=== PATIENT | female | born 1945 | race Caucasian/White ===

== ENCOUNTER 2022-01-20 05:29 | Inpatient (IN) | payer MEDICARE, SELFPAY ==
[2022-01-20] VITALS (19 sets, daily range): BP systolic 117–160; BP diastolic 44–75; PULSE 68–111; RESP 16–34; TEMP 36.5–38.1; O2SAT 91–100; BMI 27.8; BMI 29.8
--- NOTE | 2022-01-20 06:11 | EKG12_ITS ---
Test Reason : PRE OP Blood Pressure : / mmHG Vent. Rate : 073 BPM Atrial Rate : 073 BPM P-R Int : 172 ms QRS Dur : 074 ms QT Int : 418 ms P-R-T Axes : 031 017 021 degrees QTc Int : 460 ms Normal sinus rhythm Normal ECG When compared with ECG of 17-AUG-2008 22:08, No significant change was found Confirmed by JEB JOHNSON, VENANCIO ([id number]), photograph editor NEHEMIAH VALENZUELA ([id number]) on 01/24/2022 2:23:16 PM Referred By: Jay Hemphlil Confirmed By:VENANCIO RUSS MD
--- NOTE | 2022-01-20 06:18 | RAD_ITS ---
INDICATION: pre operative EXAMINATION/TECHNIQUE: X-RAY - XR Chest 1 View COMPARISON: December 29, 2015. FINDINGS: LINES/DEVICES: None. LUNGS: Linear atelectasis or scarring in the bilateral lung bases. No consolidation, florid edema or effusion. No pneumothorax. MEDIASTINUM AND CARDIOVASCULAR STRUCTURES: Cardiac silhouette not enlarged. BONES AND SOFT TISSUES: Thoracolumbar fixation hardware noted.. RAD/Chest 1 View (Portable) IMPRESSION: Linear atelectasis or scarring in the lung bases. No radiographic evidence of consolidative pneumonia or florid edema. Electronically Signed: Jerzy Donnelly MD at 7:19 EDT ,
[2022-01-20 06:30] LABS: Absolute Lymphocyte Count 3.06 X10^3/uL (0.83-4.51); Absolute Neutrophil Count 3.7 X10^3/uL (2.0-7.7); Basophil# 0.03 X10^3/uL; Basophil% 0.4 % (0-1); Eosinophil# 0.15 X10^3/uL; Hematocrit 38.9 % (37-47); Hemoglobin 11.6 g/dL (12.0-15.0); Lymphocyte # 3.06 X10^3/ul (0.83-4.51); Lymphocyte % 40.8 % (19-41); Mean Corp Hgb Conc 29.8 g/dL (32-36); Mean Corpuscular Hgb 24.9 pg (27.0-32.0); Mean Corpuscular Volume 83.7 fL (81-99); Mean Platelet Vol. 9.8 fl (6.2-12.0); Monocyte% 6.7 % (0-10); NRBC Flagged by Analyzer 0 % (0-5); Neutrophil # 3.73 X10^3/uL (2.7-7.7); Neutrophil % 49.7 % (47-70); Platelet Count 209 K/mm3 (150-450); RBC Distribution Width CV 18.6 % (11.6-14.6); RBC Distribution Width SD 56.4 fl (35.1-43.9); Red Blood Count 4.65 M/mm3 (4.2-5.4); White Blood Count 7.5 K/mm3 (4.4-11.0)
[2022-01-20] MEDS: Lactated Ringers 1,000 ML 15 ML IV (06:35)
[2022-01-20 07:07] LABS: Anion Gap 7 (5-15); BUN 15 mg/dL (7-18); BUN/Creat Ratio 22.6 RATIO (10-20); Chloride 97 mmol/L (98-107); Creatinine, Serum 0.66 mg/dL (0.55-1.02); EST Glomerular Filtration Rate 92 mL/min (>60); Est Glom Filt Rate - Afr Amer 111 mL/min (>60); Estimated Creatinine Clearance 40.21 ml/min; Glucose 89 mg/dL (74-106); Potassium 3.9 mmol/L (3.5-5.1); Sodium Level 135 mmol/L (136-145); Thyroid Stim Hormone (TSH) 2.52 uIU/mL (0.358-3.74)
--- NOTE | 2022-01-20 07:30 | FEM_PTH ---
PATIENT: ISI WILKINS LOC: [facility]3 U#:[id number] AGE/SX: 76/F [place] [facility] [place]20/[address]: Dr. Jay Hemphill DO : 1945 BED: 1 DIS: 01/26/2022 SPEC #: [id number] RECD: 01/20/22 11:05 STATUS: BRITTNY JALEEL #: [id number] JOSE: 01/20/22 07:[address]: Jay Hemphill DEPT: SURGICAL PATHOLOGY RECD BY: Dorothy Carlin ENTERED: 01/20/22 11:41 SP TYPE: FEM HEAD OTHR DR: Dr. Kan Martin MD Tissues: Femoral region, NOS Procedures: Decalcification bone/plaque Surgery Specimen Level V HEADER OPERATION: Hip removal of hardware, conversion to hip hemiarthroplasty PRE-OP DIAGNOSIS: Nondisplaced fracture of base of neck of left femur, initial encounter for closed fracture TISSUE SUBMITTED: Left femoral head MICROSCOPIC DIAGNOSIS Bone and tissue of left hip, fracture: Consistent with organizing fracture callus. AM:ciro 01/26/2022 MICROSCOPIC DESCRIPTION Slides are reviewed. GROSS DESCRIPTION Received is one container labeled with the patient's name and designated left femoral head. The specimen consists of a crews femoral head measuring 4.5 x 4.5 x 4 cm. The articular surface is grossly unremarkable. The non-articular surface is hemorrhagic and irregular and consistent with fracture. Also present in the specimen container are multiple irregular fragments of bone measuring in aggregate 5.5 x 4 x 1.2 cm. [employer] Front Ventilator sections are submitted in two cassettes after decalcification. / AM:ciro 01/20/2022 TC:5 CPT: 05804, 36672
[2022-01-20] MEDS: Cefazolin 2 GM in 0.9% Normal Saline 100 ML IV (07:33)
[2022-01-20] MEDS: Ropivacaine 0.5% 30 ML Vial (08:11)
[2022-01-20] MEDS: Vancomycin IV 1,000 MG/20 ML Vial 1000 MG OPERA.SITE (09:10)
--- NOTE | 2022-01-20 10:30 | RAD_ITS ---
STUDY: X-RAY - PELVIS AND LEFT HIP REASON FOR EXAM: Female, 76 years old. Post Op -- AP both hips on single bessy/lateral of op hip PACU TECHNIQUE: 2 views of the pelvis and hip. COMPARISON: None. FINDINGS: There is a non-specific bowel gas pattern. Normal visualized soft tissue structures. Normal bilateral iliac wings, sacroiliac joints and visualized sacrum. Normal bilateral superior and inferior pubic rami. Normal pubic symphysis. Normal bilateral ischial tuberosities. Status post left hip arthroplasty. Normal acetabulum. Normal hip joint. RAD/Hip Min 2 Views (Portable) IMPRESSION: Normal x-ray examination of the pelvis and hip after left hip arthroplasty. Electronically Signed: Rufus Seaman MD at 11:24 EDT ,
--- NOTE | 2022-01-20 10:38 | OP.PCM_ITS ---
Report of Operation Date of Procedure: 01/20/22 Description of Surgical Findings:: Preoperative diagnosis: 1. Left displaced femoral neck fracture with failed orthopedic stabilization 2. Retained left femur buried hardware Postoperative diagnosis: 1. Left displaced femoral neck fracture with failed orthopedic stabilization 2. Retained left femur buried hardware Procedure: 1. Removal of retained orthopedic hardware left femur 2. Conversion of failed internal fixation left femoral neck to left hip john arthroplasty Surgeon: Jay Hemphill DO Welding Inspector: Mai Haywood PA-C Anesthesia: General endotracheal Anesthesiologist: Dr. Freed Complications: None apparent Drains: None Estimated blood loss: 350 cc Urinary output: None recorded IV fluids: 600 cc crystalloid crystalloid Specimens: Femoral head resection Surgical implants: Sola Accolade C 127 degree neck angle hip stem size #3, Unitrax neck adjustment sleeve 0 mm, Unitrax endoprosthesis head component outer diameter 46 mm, [employer] beaded cerclage cable x1 Indications: This is an 76-year-old female who sustained a fall approximately 3 weeks ago and sustained a left nondisplaced femoral neck fracture. I performed a percutaneous screw fixation of the left femoral neck on 12/27/2021 at [facility]. Patient mobilized with therapy reasonably well. At her 2- week follow-up, x-rays revealed loss of fixation with displacement of the femoral neck. I reviewed the x-rays with the patient. I explained that this is unlikely to heal and I would recommend conversion to a left hip hemiarthroplasty versus total hip arthroplasty. I explained that she had minimal arthritic wear on x-rays and we would likely perform a hemiarthroplasty barring any chondral injury from screw cut out. I reviewed the procedure with the patient, its risk, benefits, alternatives. Risks included but were not limited to bleeding, in fection, loss of life or limb, risk of anesthesia, neurovascular injury, persistent pain, instability, need for additional surgery, failure of orthopedic hardware, loosening, osteolysis, need for assistive devices long-term. Patient expressed understanding wish to proceed with surgery. Description of procedure: Prior to the procedure, patient was brought to the preoperative holding area where patient was identified by name, medical record number and date of . I confirmed the side, site, operation to be performed with the patient. Informed consent was confirmed, All questions were answered to patient satisfaction. The operative extremity was marked. She was also seen by anesthesia staff and anesthesia consent obtained.At time of the operative procedure, pt was brought to the operative suite. General anesthesia was induced on the hospital bed and endotracheal tube placed. After adequate anesthesia, patient was transferred to a standard operating table. She was then positioned in the lateral decubitus position with the left side up and held in position by the Toby med hip positioner system. All bony prominences were well-padded. A axillary roll was placed under the patient's right axilla. Peroneal nerve was free with a blanket on the nonoperative extremity. Leg lengths were reproduced from patient's position when she was supine. The left lower extremity was then prepped and draped in normal, sterile orthopedic fashion. We performed a timeout with all parties in attendance in agreement with the side, site, and operation to be performed. No concerns were voiced and would like to proceed. I first marked the prior incision incorporating this into a standard posterior lateral approach to the hip. An approximately 18 cm incision was made. Skin was sharply incised with a 10 blade scalpel carried deep through subcutaneous layers to the level of the IT band. Gelpi retractors were then placed. Small subcutaneous hematoma with clotted blood was noted at the level of the prior incision. A Fung was used to expose the IT band. Bovie cautery was then used for hemostasis and then to open the IT band. This was opened in line with the incision. I then identified the 3 screw heads of the cannulated screws. These were removed without difficulty. I then turned my attention to the hip. The trochanteric bursa was then debrided. This identified the short external rotators after internal rotation of the hip. The fracture site was easily identified at this point. Short external rotators were taken down and tagged for later repair. Hip capsule was also tagged for repair with a stay suture. We then freshened the neck cut with a sagittal saw. Anterior and posterior acetabular retractors were placed to gain access to the femoral head. A corksc rew was used to remove the head. Any remaining debris was debrided from the acetabulum. We then placed the femoral head on the back table for measurement. We did use trial heads and selected a final size 46 with good suction fit. Prior to preparing the femur, I elected to place a cerclage cable at the level of the calcar in hopes to diminish her risk of intraoperative fracture. Box chisel was then utilized to gain access to the femoral canal. Canal finder was placed. Sequential broaches were used in press-fit manner. A final size 3 achieved excellent vertical and rotational stability. We then trialed with a standard and subsequently high offset stem. I offset did achieve excellent stability and reproduction of abductor tension. I then prepared the femur for cementing. We trialed a centralizer to determine appropriate size. Simplex cement was then mixed on the back table. I placed a cement restrictor to an appropriate depth allowing for a 5 mm distal cement mantle. Wire brush was used to remove blood from the femoral canal. I then thoroughly irrigated the femoral canal. Canal was suctioned dry. I then placed dry vaginal packing to pack the femoral canal. After 3 minutes, the cement was pressurized in the femoral canal. Size #3 stem was then placed by hand to an appropriate depth recreating appropriate anteversion of the femoral neck. This was held in place while cement cured. Excess cement was removed. After the cemented hardened, we copiously irrigated the wound with normal saline solution and dilute sterile Betadine solution. I performed a final trialing with a +0 mm head trial which appropriately reproduce her leg lengths and was stable through an arc of motion. Final dislocation was performed. The trunnion was irrigated and dried. Final head was then impacted over the [place] taper neck. Final reduction was performed. I then placed 0.5 g of vancomycin within the hip capsule. A posterior capsular repair was performed with #2 Ethibond suture via bone tunnels. IT band was closed watertight with #1 strata fix suture. An additional 0.5 g of vancomycin was placed superficial to the IT band. Deeper fascial layers were closed with 0 Vicryl suture in interrupted fashion. Subcutaneous layers were reapproximated with 2-0 Vicryl suture and skin reapproximated finally with interrupted horizontal mattress 2-0 nylon suture. A Prevena incisional wound VAC dressing was placed with good suction seal. Patient tolerated procedure well without complication. She was positioned back in the supine position on her hospital bed and subsequently extubated safely. She was transferred to PACU in stable condition. Blankets were placed between the patient's legs. Post Operative Plan: Patient will be admitted overnight. We will plan to transfer the patient back to correction facility after medically stable. Weightbearing: Weightbearing as tolerated left lower extremity, posterior hip precautions. Blankets between the legs for the first 24 hours Antibiotics: Ancef 2 g every 8 hours x 3 doses, doxycycline 100 mg twice daily x7 days DVT Prophylaxis: Lovenox 40 mg subcutaneously daily starting postoperative day #1 Ocampo: None Dressing: Maintain Prevena wound VAC x10 days, then dry sterile dressing changes X-Rays: PACU x-rays were reviewed demonstrated well-positioned left hip hemiarthroplasty implant. Follow-up 2-week x-rays in the office. Follow-up: 2 weeks in my office for suture removal
[2022-01-20] MEDS: oxyCODONE 5 MG Tablet 10 MG PO (12:57)
--- NOTE | 2022-01-20 13:01 | NURSING ---
pt is cold, warm blankets given. Pt also given jello, ice water, and flavored ice. Pt is eating jello at this time.
--- NOTE | 2022-01-20 14:17 | WOUNDNOTE ---
wound photo: mid upper back
--- NOTE | 2022-01-20 15:08 | PCM.PN.HOSP ---
Subjective Subjective Mrs. Villar is a 76-year-old female who was seen in follow-up by Dr. Hemphill status post a left femoral neck percutaneous screw fixation that was done on 12/27/2021. Upon evaluation follow-up she was approximately 2 weeks out of surgery and complaining of 8 out of 10 pain and presented in a wheelchair. He had indicated that she had tried bearing weight however struggled. X-rays revealed considerable loss of fixation at the site and further surgical intervention was recommended with removal of hardware and conversion to a left hip hemiarthroplasty versus a left total hip arthroplasty. The patient was admitted the hospital on 01/20/2022 for this procedure at which time her fixating screw was removed in conversion to a left hip hemiarthroplasty was performed. The patient has been admitted overnight and we have been consulted for postoperative follow-up. Patient was seen on the medical floor postoperatively. Currently complaining of 3 out of 10 pain in the left hip. Physical occupational therapy at the bedside. Objective Data Objective Data Vital Signs: Vital Signs Temp Pulse Resp BP Pulse Ox O2 Del Method O2 Flow Rate 99.4 F H 90 18 134/70 H 94 Room Air 1 01/20/22 14:35 01/20/22 14:35 01/20/22 14:35 01/20/22 14:35 01/20/22 14:35 01/20/22 14:35 01/20/22 13:50 Oxygen Flow Rate (L/min) 1 Oxygen Delivery Method Room Air Weight: 76.402 kg Body Mass Index (BMI) 29.8 Intake & Output: Intake and Output for Last 24 Hours 01/18/22 01/19/22 01/20/22 23:59 23:59 23:59 Intake Total 110 / 110 Balance 110 / 110 Lab / Micro Data Result Diagrams: 01/20/22 06:15 01/20/22 06:15 Labs: Laboratory Results - last 24 hr 01/20/22 06:15: WBC 7.5, RBC 4.65, Hgb 11.6 L, Hct 38.9, MCV 83.7, MCH 24.9 L, MCHC 29.8 L, RDW Std Deviation 56.4 H, RDW Coeff of Colin 18.6 H, Plt Count 209, MPV 9.8, Immature Gran % (Auto) 0.400, Neut % (Auto) 49.7, Lymph % (Auto) 40.8, Converse % (Auto) 6.7, Eos % (Auto) 2.0, Baso % (Auto) 0.4, Absolute Neuts (auto) 3.7, Absolute Lymphs (auto) 3.06, Nucleated RBC % 0 01/20/22 06:15: Sodium 135 L, Potassium 3.9, Chloride 97 L, Carbon Dioxide 31.0, Anion Gap 7, BUN 15, Creatinine 0.66, Estim Creat Clear Calc 40.21, Est GFR (MDRD) Af Amer 111, Est GFR (MDRD) Non-Af 92, BUN/Creatinine Ratio 22.6 H, Glucose 89, Calcium 9.0, TSH 2.52 01/20/22 06:15: Blood Type O POSITIVE, Antibody Screen NEGATIVE Radiography Diagnostic Testing: Radiology Impression Chest X-Ray 01/20/22 06:18 IMPRESSION: Linear atelectasis or scarring in the lung bases. No radiographic evidence of consolidative pneumonia or florid edema. Electronically Signed: Jerzy Donnelly MD at 7:19 EDT , Hip X-Ray 01/20/22 10:30 IMPRESSION: Normal x-ray examination of the pelvis and hip after left hip arthroplasty. Electronically Signed: Rufus Seaman MD at 11:24 EDT , Physical Exam Const alert, oriented x3, no apparent distress and well nourished Constitutional Narrative: Overweight, elderly white female sitting up in bed, therapy at bedside, patient appears comfortable nontoxic HEENT head/scalp atraumatic and moist oral mucous membranes HEENT Narrative: Titian is poor, Mallampati is 2, no thrush Head and Scalp: normocephalic Resp normal respiratory effort, no retractions, no use of accessory muscles and clear to auscultation bilaterally Resp Narrative: Diminished but clear Auscultation: Negative for crackles, rales, rhonchi or wheezes Cardio regular rate, regular rhythm, S1 normal heart sound, S2 normal heart sound, no murmurs, no rub, no gallops and no clicks GI normal to inspection, nondistended, normoactive bowel sounds, soft to palpation and non-tender Extremity no clubbing, cyanosis or edema Extremity Narrative: Left lower extremity with wound VAC and polar ice in place Neuro oriented x3 and no focal motor deficits Neuro Narrative: Decreased movement left lower extremity secondary to pain Speech: speech normal Psych affect normal Psych Narrative: Appropriately interactive, pleasant Assessment & Plan Assessment/Plan (1) Closed left hip fracture: (2) History of hemiarthroplasty of left hip: (3) Hyponatremia: PLAN: Plan Closed left hip fracture status post fixator screw placement 12/27/2021 -Screw with loosening -Postop day 0 left hemiarthroplasty -Weightbearing as tolerated -PT/OT consultation -Posterior hip precautions -Lovenox subcu 40 mg daily for DVT prophylaxis -Wound VAC x10 days and sterile dressing -Follow-up x-rays and outpatient visit with Dr. Hemphill in 2 weeks -Plan is for probable discharge tomorrow back to skilled facility if patient remains stable Hyponatremia -Mild at 135 -Appears that this has been a problem previously -Repeat lab in a.m. for stability -No further work-up needed at this time Hyperlipidemia -Patient does not appear to be on any statin at baseline -We will leave to outpatient follow-up Hypothyroidism -Continue home levothyroxine Chronic pain -Continue home methadone -Continue home as needed oxycodone for breakthrough Chronic steroid use -Patient is on prednisone 10 mg daily for pain -Would encourage outpatient follow-up and wean as this increases her risk for fracture Hypertension -Continue home metoprolol -Monitor blood pressures Constipation -Likely related to chronic narcotic use -Continue home stool softeners Depression/anxiety/insomnia -Continue home Lexapro -continue home trazodone -Continue home Seroquel -Continue home BuSpar GERD -Continue home PPI History of breast cancer -In remission -No current issues DVT prophylaxis -Lovenox subcu daily -SCDs while hospitalized CODE STATUS -DNR CCA no intubation Charges/Coding Visit Charges Inpatient E&M: 22331 Subs Hosp L2
[2022-01-20] MEDS: Juven (unflavored) Packet 1 PACKET PO (16:33)
[2022-01-20] MEDS: Acetaminophen 500 MG Tablet 1000 MG PO ×2 (17:25→21:53)
--- NOTE | 2022-01-20 17:32 | NURSING ---
This RN attempted to get an accurate med list by calling both sons listed. Both Son's did not answer but this RN left a message. No call back thus far. This RN then called Dr. Gauthier office and spoke to one of his Nurses whom then stated that Ms. Villar had not been a pt of Dr. Gauthier since 2017. Demographic sheet shows that primary care physician is Dr. Martin. This RN in to ask pt and pt tearful b/c she can not remember the name of her Doctor. I forget her name. Pt does state her doctor is a women.
[2022-01-20] MEDS: HYDROmorphone 1 MG/ML Syringe IV (17:56)
[2022-01-20] MEDS: 0.9% Saline Lock 10 ML Syringe IV ×2 (17:56→21:49)
[2022-01-20] MEDS: busPIRone 5 MG Tablet PO (18:20)
[2022-01-20] MEDS: Ketorolac 15 MG/ML Vial IV (21:51)
[2022-01-20] MEDS: Senna/Docusate Sodium 1 Tablet PO (21:53)
[2022-01-20] MEDS: guaiFENesin 600 MG Tablet PO (21:53)
[2022-01-20] MEDS: traZODone 50 MG Tablet PO (21:53)
[2022-01-20] MEDS: Doxycycline 100 MG CAPSULE PO (21:53)
[2022-01-20] MEDS: QUEtiapine 25 MG Tablet PO (21:53)
[2022-01-20] MEDS: MELATONIN 3 MG TABLET PO (21:53)
[2022-01-20] MEDS: Methadone 10 MG Tablet PO (21:55)
[2022-01-21] VITALS (11 sets, daily range): BP systolic 107–148; BP diastolic 47–70; PULSE 82–110; RESP 16–18; TEMP 36.8–37.2; O2SAT 91–98
[2022-01-21] MEDS: Acetaminophen 500 MG Tablet 1000 MG PO ×3 (05:21→21:32)
[2022-01-21] MEDS: Levothyroxine 150 MCG Tablet PO (05:21)
[2022-01-21] MEDS: 0.9% Saline Lock 10 ML Syringe IV (05:22)
[2022-01-21] MEDS: Ketorolac 15 MG/ML Vial IV (05:23)
[2022-01-21 06:40] LABS: Hemoglobin 8.2 g/dL (12.0-15.0); Mean Corp Hgb Conc 31.5 g/dL (32-36); Mean Corpuscular Hgb 25.5 pg (27.0-32.0); Mean Platelet Vol. 10.1 fl (6.2-12.0); Platelet Count 169 K/mm3 (150-450); RBC Distribution Width CV 18.4 % (11.6-14.6); RBC Distribution Width SD 54.5 fl (35.1-43.9); Red Blood Count 3.21 M/mm3 (4.2-5.4); White Blood Count 5.5 K/mm3 (4.4-11.0)
[2022-01-21 07:06] LABS: Anion Gap 8 (5-15); BUN 26 mg/dL (7-18); BUN/Creat Ratio 30.6 RATIO (10-20); Calcium,Total 8.3 mg/dL (8.5-10.1); Chloride 96 mmol/L (98-107); Creatinine, Serum 0.85 mg/dL (0.55-1.02); EST Glomerular Filtration Rate 69 mL/min (>60); Est Glom Filt Rate - Afr Amer 84 mL/min (>60); Estimated Creatinine Clearance 47.31 ml/min; Glucose 89 mg/dL (74-106); Potassium 4.4 mmol/L (3.5-5.1); Sodium Level 131 mmol/L (136-145)
--- NOTE | 2022-01-21 07:22 | PN.ORTHO_ITS ---
Subjective Subjective Patient seen and examined. Resting comfortably this morning. She awoke and answer questions appropriately. States her left hip feels alright . Denies fevers, chills, nausea vomiting, chest pain or shortness of breath. Objective Data Objective Data Vital Signs: Vital Signs Temp Pulse Resp BP Pulse Ox O2 Del Method O2 Flow Rate 98.5 F 82 18 148/60 H 98 Room Air 1 01/21/22 05:16 01/21/22 05:16 01/21/22 05:16 01/21/22 05:16 01/21/22 05:16 01/21/22 05:16 01/20/22 13:50 Oxygen Flow Rate (L/min) 1 Oxygen Delivery Method Room Air Weight: 168 lb 7.001 oz Body Mass Index (BMI) 29.8 Intake & Output: Intake and Output for Last 24 Hours 01/19/22 01/20/22 01/21/22 23:59 23:59 23:59 Intake Total 841 / 841 100 / 100 Balance 841 / 841 100 / 100 Lab / Micro Data Result Diagrams: 01/21/22 06:25 01/21/22 06:25 Labs: Laboratory Results - last 24 hr 01/20/22 06:15: Blood Type O POSITIVE, Antibody Screen NEGATIVE 01/21/22 06:25: WBC 5.5, RBC 3.21 L, Hgb 8.2 L, Hct 26.0 L, MCV 81.0, MCH 25.5 L , MCHC 31.5 L D, RDW Std Deviation 54.5 H, RDW Coeff of Colin 18.4 H, Plt Count 169, MPV 10.1 01/21/22 06:25: Sodium 131 L, Potassium 4.4, Chloride 96 L, Carbon Dioxide 27.0, Anion Gap 8, BUN 26 H, Creatinine 0.85, Estim Creat Clear Calc 47.31, Est GFR (MDRD) Af Amer 84, Est GFR (MDRD) Non-Af 69, BUN/Creatinine Ratio 30.6 H, Glucose 89, Calcium 8.3 L Radiography Diagnostic Testing: Radiology Impression Chest X-Ray 01/20/22 06:18 IMPRESSION: Linear atelectasis or scarring in the lung bases. No radiographic evidence of consolidative pneumonia or florid edema. Electronically Signed: Jerzy Donnelly MD at 7:19 EDT , Hip X-Ray 01/20/22 10:30 IMPRESSION: Normal x-ray examination of the pelvis and hip after left hip arthroplasty. Electronically Signed: Rufus Seaman MD at 11:24 EDT , Physical Exam Narrative General - A&Ox3, NAD. VSS/AF Left lower extremity -incisional wound VAC clean dry and intact with good suction seal. No output noted in canister. SILT Sural, Saphenous, SPN, DPN, Tibial N. distributions. DP, PT 2+. BCR. DF, PF, EHL 5/5. No calf TTP. Assessment & Plan Assessment/Plan (1) Closed left hip fracture: PLAN: POD#1 s/p conversion left hip screw fixation to cemented hip h emiarthroplasty - Pain control-patient appears comfortable this morning. - Medicine following for medical management - Hyponatremia again noted today slightly worse, defer to hospitalist for treatment of electrolyte abnormality. Appreciate input. - PT/OT -posterior hip precautions left, weight-bear as tolerated left lower extremity - DVT PPX -Lovenox 40 mg subcutaneously daily starting this morning. Expected drop in hemoglobin with acute blood loss anemia noted from 11.6 preoperatively to 8.2 this morning. Likely some delusional component as well. No evidence of active bleeding on exam today. - Case management - D/C planning. Plan for discharge back to SNF when medically stable.
[2022-01-21] MEDS: Juven (unflavored) Packet 1 PACKET PO ×2 (09:57→17:26)
[2022-01-21] MEDS: Escitalopram Oxalate 20 MG Tablet PO (09:58)
[2022-01-21] MEDS: Methadone 10 MG Tablet PO ×2 (09:58→21:30)
[2022-01-21] MEDS: guaiFENesin 600 MG Tablet PO ×2 (09:58→21:30)
[2022-01-21] MEDS: Pantoprazole Sodium 40 MG Tablet PO (09:58)
[2022-01-21] MEDS: busPIRone 5 MG Tablet PO ×2 (09:58→21:31)
[2022-01-21] MEDS: Metoprolol(XL)Succ 50 MG Tablet PO (09:58)
[2022-01-21] MEDS: Senna/Docusate Sodium 1 Tablet PO ×2 (09:58→21:30)
[2022-01-21] MEDS: Enoxaparin 40 MG/0.4 ML Syringe SC (09:58)
[2022-01-21] MEDS: Doxycycline 100 MG CAPSULE PO ×2 (09:58→21:30)
[2022-01-21] MEDS: Multivitamins,Ther W-Minerals Tablet 1 TABLET PO (09:58)
[2022-01-21] MEDS: QUEtiapine 25 MG Tablet PO ×2 (09:58→21:31)
[2022-01-21 10:23] LABS: Hemoglobin 8.6 g/dL (12.0-15.0)
[2022-01-21] MEDS: oxyCODONE 5 MG Tablet 10 MG PO ×2 (11:14→21:31)
--- NOTE | 2022-01-21 11:28 | CASEMGMT ---
Discharge Front Line Leader This song writer sent referral to Tracy Fournier. Will follow up. Kal ALFARO Learning Development Specialist
--- NOTE | 2022-01-21 11:40 | PN.HOSP_ITS ---
Subjective Subjective No issues overnight. Patient states she is having some pain but overall feels as expected. Objective Data Objective Data Vital Signs: Vital Signs Temp Pulse Resp BP Pulse Ox O2 Del Method O2 Flow Rate 98.2 F 92 18 107/47 L 96 Room Air 1 01/21/22 09:35 01/21/22 09:58 01/21/22 09:35 01/21/22 09:35 01/21/22 09:35 01/21/22 09:35 01/20/22 13:50 Oxygen Flow Rate (L/min) 1 Oxygen Delivery Method Room Air Weight: 76.402 kg Body Mass Index (BMI) 29.8 Intake & Output: Intake and Output for Last 24 Hours 01/19/22 01/20/22 01/21/22 23:59 23:59 23:59 Intake Total 841 / 841 100 / 100 Balance 841 / 841 100 / 100 Lab / Micro Data Result Diagrams: 01/21/22 10:14 01/21/22 06:25 Labs: Laboratory Results - last 24 hr 01/21/22 06:25: WBC 5.5, RBC 3.21 L, Hgb 8.2 L, Hct 26.0 L, MCV 81.0, MCH 25.5 L , MCHC 31.5 L D, RDW Std Deviation 54.5 H, RDW Coeff of Colin 18.4 H, Plt Count 169, MPV 10.1 01/21/22 06:25: Sodium 131 L, Potassium 4.4, Chloride 96 L, Carbon Dioxide 27.0, Anion Gap 8, BUN 26 H, Creatinine 0.85, Estim Creat Clear Calc 47.31, Est GFR (MDRD) Af Amer 84, Est GFR (MDRD) Non-Af 69, BUN/Creatinine Ratio 30.6 H, Glucose 89, Calcium 8.3 L 01/21/22 10:14: Hgb 8.6 L Physical Exam Const alert, oriented x3, no apparent distress and well nourished Constitutional Narrative: Overweight, elderly white female sitting up in bed, lying in bed rolled slightly to her right side, appears comfortable nontoxic, wound nurse at bedside HEENT head/scalp atraumatic and moist oral mucous membranes HEENT Narrative: Dentition is poor, Mallampati is 2 Head and Scalp: normocephalic Resp normal respiratory effort, no retractions, no use of accessory muscles and clear to auscultation bilaterally Resp Narrative: Diminished but clear Auscultation: Negative for crackles, rales, rhonchi or wheezes Cardio regular rate, regular rhythm, S1 normal heart sound, S2 normal heart sound, no murmurs, no rub, no gallops and no clicks GI normal to inspection, nondistended, normoactive bowel sounds, soft to palpation and non-tender Extremity no clubbing, cyanosis or edema Extremity Narrative: Left lower extremity with wound VAC and polar ice in place Neuro oriented x3 and no focal motor deficits Neuro Narrative: Decreased movement left lower extremity secondary to pain Speech: speech normal Assessment & Plan Assessment/Plan (1) Closed left hip fracture: (2) History of hemiarthroplasty of left hip: (3) Hyponatremia: PLAN: Plan Closed left hip fracture status post fixator screw placement 12/27/2021 -Screw with loosening -Postop day 1 left hemiarthroplasty -Weightbearing as tolerated -PT/OT consultation -Posterior hip precautions -Lovenox subcu 40 mg daily for DVT prophylaxis -Wound VAC x10 days and sterile dressing -Follow-up x-rays and outpatient visit with Dr. Hemphill in 2 weeks -Okay for discharge to skilled facility from a medical standpoint Anemia -Hemoglobin dropped from 11.6-8.2 in the last 24 hours -All lines did drop -Suspect predominantly delusional -Repeat hemoglobin was obtained and found to be stable at 8.6 -Patient with no obvious signs of bleeding at this time Hyponatremia -Mild at 131 -Appears that this has been a problem previously -No further work-up needed at this time Hyperlipidemia -Patient does not appear to be on any statin at baseline -We will leave to outpatient follow-up Hypothyroidism -Continue home levothyroxine Chronic pain -Continue home methadone -Continue home as needed oxycodone for breakthrough Chronic steroid use -Patient is on prednisone 10 mg daily for pain -Would encourage outpatient follow-up and wean as this increases her risk for fracture Hypertension -Continue home metoprolol -Monitor blood pressures Constipation -Likely related to chronic narcotic use -Continue home stool softeners Depression/anxiety/insomnia -Continue home Lexapro -continue home trazodone -Continue home Seroquel -Continue home BuSpar GERD -Continue home PPI History of breast cancer -In remission -No current issues DVT prophylaxis -Lovenox subcu daily -SCDs while hospitalized CODE STATUS -DNR CCA no intubation Charges/Coding Visit Charges Inpatient E&M: 27867 Subs Hosp L2
--- NOTE | 2022-01-21 12:50 | CASEMGMT ---
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 Pre-cert is being started today 01/21/22. This headline writer notified Naheed that is pre-cert is obtained thru the weekend to please call the floor at [phone]. Kal ALFARO Sales Commissions Analyst
--- NOTE | 2022-01-21 16:44 | CASEMGMT ---
Social Work SW received referral that pt is planning on returning to [facility] at time of discharge. SW met with pt and introduced self and role of SW. Pt states that she was at [facility] and was admitted to [facility] for surgery and plans to return to [facility]. A list of SNF providers including quality and resource use data and consistent with the patient?s preferred geographic region, medical needs, and insurance network were provided from the [facility] Guide. Pt declines as she wants to return to [facility]. Phone call to pt's son Stas who confirms the discharge plan is to return to [facility] for continued therapy. Phone call to Sola at [facility] and a new precert will be needed prior to admission. kan Amezquita/glynn chef assistant updated and referral to be sent to [facility]. Plan: [facility], pending precert [facility]
[2022-01-21] MEDS: traZODone 50 MG Tablet PO (21:30)
[2022-01-22] VITALS (7 sets, daily range): BP systolic 106–111; BP diastolic 45–56; PULSE 75–112; RESP 16–18; TEMP 36.6–37.3; O2SAT 85–97
[2022-01-22] MEDS: Acetaminophen 500 MG Tablet 1000 MG PO ×3 (05:19→22:10)
[2022-01-22] MEDS: Levothyroxine 150 MCG Tablet PO (05:20)
[2022-01-22] MEDS: oxyCODONE 5 MG Tablet 10 MG PO (05:29)
[2022-01-22 07:21] LABS: Hematocrit 26.5 % (37-47); Hemoglobin 8.3 g/dL (12.0-15.0); Mean Corp Hgb Conc 31.3 g/dL (32-36); Mean Corpuscular Hgb 25.1 pg (27.0-32.0); Mean Corpuscular Volume 80.1 fL (81-99); Mean Platelet Vol. 10.3 fl (6.2-12.0); Platelet Count 158 K/mm3 (150-450); RBC Distribution Width CV 18.8 % (11.6-14.6); Red Blood Count 3.31 M/mm3 (4.2-5.4)
[2022-01-22] MEDS: Juven (unflavored) Packet 1 PACKET PO ×2 (07:54→16:02)
[2022-01-22] MEDS: Multivitamins,Ther W-Minerals Tablet 1 TABLET PO (07:54)
--- NOTE | 2022-01-22 10:09 | PCM.TXEXTCAR ---
Diet Diet Order/Speech Therapy: 01/20/22 16:28 Diet: Regular - General Is pt able to select menu?: Yes Wound(s) LEFT HIP: Wound Type: Surgical Incision Dressing Change: Dry Sterile Dressing (Maintain incisional wound VAC Leti until 01/30/2022 then okay to remove and transition to dry sterile dressing changes daily) BACK: Wound Type: Pressure Injury Dressing Change: applied Mepilex dressing Suggestions for Active Care Change Position every (hours): 2 Therapies Weight Bearing: Weight bearing as tolerated Physical Therapy: Eval and Treat Occupational Therapy: Eval and Treat Problem/Diagnosis (1) Closed left hip fracture: Status: Acute Code(s): S72.002A - Fracture of unspecified part of neck of left femur, initial encounter for closed fracture Plan: s/p conversion left hip screw fixation to cemented hip hemiarthroplasty - Pain control-patient appears comfortable this morning. - PT/OT -posterior hip precautions left, weight-bear as tolerated left lower extremity - DVT PPX -Lovenox 40 mg subcutaneously daily Comment: With postoperative screw instability (2) History of hemiarthroplasty of left hip: Status: Acute Code(s): Z96.642 - Presence of left artificial hip joint (3) Hyponatremia: Status: Acute Code(s): E87.1 - Hypo-osmolality and hyponatremia Allergies/Procedures Done in Hospital Allergies aspirin Allergy (Unknown, Verified 01/20/22 06:27) Abdominal pain, Sweating Type of Care/Length of Stay Estimated LOS: Convalescent Care Less Than 30 days Type of Care Needed: Skilled Rehab Potential: Good Prognosis: Good Additional Orders/Day of Discharge Day of Discharge: 01/22/22 Dietary and Speech Recommendations Dietitian Recommendations/Changes: ADAT to Regular diet when medically able. RD will order Javier BID with medpass. Follow Up Care Please Follow Up With: Jay Hemphill DO When: 1 week after discharge Discharge Plan Admission Admit Date/Time: 01/20/22 05:29 Primary Reason for Your Visit: Left hip surgery Attending Provider: Jay Hemphill Primary Care Provider: Kan Martin Chi Consulting Providers: Lo Penaloza Instructions Additional Instructions / Restrictions: Maintain Prevena wound VAC x10 days, then transition to dry sterile dressing changes for lateral left hip incision. Weightbearing as tolerated left lower extremity. Posterior hip precautions left with weightbearing as tolerated left lower extremity. Patient will need follow-up basic metabolic profile in 2 to 3 days after discharge from acute care facility Discharge Orders/Prescriptions Prescriptions: New acetaminophen 500 mg Tablet 1,000 mg PO Q8 14 Days Qty: 84 0RF doxycycline monohydrate 100 mg Capsule 100 mg PO BID 7 Days Qty: 14 0RF Continued buspirone 5 mg tablet 5 mg PO BID escitalopram oxalate 20 mg tablet 20 mg PO DAILY esomeprazole magnesium 40 mg capsule,delayed release(DR/EC) 40 mg PO DAILY prednisone 10 mg Tablet 10 mg PO DAILY trazodone 50 mg Tablet 50 mg PO QHS methadone 10 mg Tablet 10 mg PO BID ondansetron 8 mg Tablet,Disintegrating 8 mg PO TID magnesium hydroxide 400 mg/5 mL Suspension 30 ml PO DAILY PRN (Reason: Constipation) levothyroxine 150 mcg Tablet 150 mcg PO DAILY oxycodone 5 mg Tablet 5 mg PO Q8H PRN (Reason: Pain) enoxaparin [Lovenox] 40 mg/0.4 mL Syringe 40 mg SUBCUT DAILY multivitamin with minerals Capsule 1 cap PO DAILY quetiapine [Seroquel XR] 50 mg Tablet Extended Release 24 Hr 50 mg PO QHS guaifenesin 600 mg Tablet Extended Release 12hr 600 mg PO Q12H metoprolol succinate 50 mg Capsule,Sprinkle,Er 24hr 50 mg PO DAILY melatonin 3 mg Capsule 3 mg PO QHS PRN (Reason: Insomnia) sennosides-docusate sodium 8.6-50 mg Capsule 1 tab-cap PO BID Referrals / Follow Up: Jay Hemphill DO [Med Staff - Active Staff] - Within 2 Weeks Kan Martin Chi, MD [Primary Care Provider] - Disposition Disposition (needs filled in before D/C Order can be placed): Intermediate Facility
--- NOTE | 2022-01-22 10:13 | PCM.PN.ORT ---
Subjective Subjective Patient seen and examined. Denies any new symptoms. Denies fevers, chills, nausea vomiting, chest pain or shortness of breath. Objective Data Objective Data Vital Signs: Vital Signs Temp Pulse Resp BP Pulse Ox O2 Del Method O2 Flow Rate 98.6 F 112 H 18 106/55 L 92 Room Air 1 01/22/22 07:44 01/22/22 07:44 01/22/22 07:44 01/22/22 07:44 01/22/22 07:44 01/22/22 07:48 01/22/22 02:21 Oxygen Flow Rate (L/min) 1 Oxygen Delivery Method Room Air Weight: 168 lb 7.001 oz Body Mass Index (BMI) 29.8 Intake & Output: Intake and Output for Last 24 Hours 01/20/22 01/21/22 01/22/22 23:59 23:59 23:59 Intake Total 841 / 841 1100 / 1100 Balance 841 / 841 1100 / 1100 Lab / Micro Data Attestation: I reviewed the patient's lab results. Result Diagrams: 01/22/22 07:00 01/21/22 06:25 Labs: Laboratory Results - last 24 hr 01/21/22 10:14: Hgb 8.6 L 01/22/22 07:00: WBC 6.0, RBC 3.31 L, Hgb 8.3 L, Hct 26.5 L, MCV 80.1 L, MCH 25.1 L, MCHC 31.3 L, RDW Std Deviation 55.0 H, RDW Coeff of Colin 18.8 H, Plt Count 158, MPV 10.3 Physical Exam Narrative General - A&Ox3, NAD. VSS/AF Left lower extremity -incisional wound VAC clean dry and intact with good suction seal. No output noted in canister. SILT Sural, Saphenous, SPN, DPN, Tibial N. distributions. DP, PT 2+. BCR. DF, PF, EHL 5/5. No calf TTP. Assessment & Plan Assessment/Plan (1) History of hemiarthroplasty of left hip: (2) Closed left hip fracture: PLAN: POD#2 s/p conversion left hip screw fixation to cemented hip hemiarthroplasty - Pain control-patient appears comfortable this morning. - Medicine following for medical management - PT/OT -posterior hip precautions left, weight-bear as tolerated left lower extremity - DVT PPX -Lovenox 40 mg subcutaneously daily. Hemoglobin stable this morning. No evidence of active bleeding. - Case management - D/C planning. Patient stable for discharge pending pre-CERT to SNF.
[2022-01-22] MEDS: busPIRone 5 MG Tablet PO ×2 (10:14→22:14)
[2022-01-22] MEDS: Doxycycline 100 MG CAPSULE PO ×2 (10:14→22:09)
[2022-01-22] MEDS: guaiFENesin 600 MG Tablet PO ×2 (10:14→22:10)
[2022-01-22] MEDS: Metoprolol(XL)Succ 50 MG Tablet PO (10:14)
[2022-01-22] MEDS: Senna/Docusate Sodium 1 Tablet PO ×2 (10:14→22:10)
[2022-01-22] MEDS: Enoxaparin 40 MG/0.4 ML Syringe SC (10:14)
[2022-01-22] MEDS: Pantoprazole Sodium 40 MG Tablet PO (10:14)
[2022-01-22] MEDS: Escitalopram Oxalate 20 MG Tablet PO (10:14)
[2022-01-22] MEDS: QUEtiapine 25 MG Tablet PO ×2 (10:14→22:09)
[2022-01-22] MEDS: Methadone 10 MG Tablet PO ×2 (10:17→22:09)
--- NOTE | 2022-01-22 11:21 | PCM.PN.HOSP ---
Subjective Subjective No issues overnight. Patient denies any significant pain. Reports that she is not out of bed yesterday. Strongly encouraged her to get up to the chair today. She voiced understanding and stated she would. Objective Data Objective Data Vital Signs: Vital Signs Temp Pulse Resp BP Pulse Ox O2 Del Method O2 Flow Rate 98.6 F 112 H 18 106/55 L 92 Room Air 1 01/22/22 07:44 01/22/22 10:14 01/22/22 07:44 01/22/22 07:44 01/22/22 07:44 01/22/22 07:48 01/22/22 02:21 Oxygen Flow Rate (L/min) 1 Oxygen Delivery Method Room Air Weight: 76.402 kg Body Mass Index (BMI) 29.8 Intake & Output: Intake and Output for Last 24 Hours 01/20/22 01/21/22 01/22/22 23:59 23:59 23:59 Intake Total 841 / 841 1100 / 1100 Balance 841 / 841 1100 / 1100 Lab / Micro Data Result Diagrams: 01/22/22 07:00 01/21/22 06:25 Labs: Laboratory Results - last 24 hr 01/22/22 07:00: WBC 6.0, RBC 3.31 L, Hgb 8.3 L, Hct 26.5 L, MCV 80.1 L, MCH 25.1 L, MCHC 31.3 L, RDW Std Deviation 55.0 H, RDW Coeff of Colin 18.8 H, Plt Count 158, MPV 10.3 Physical Exam Const alert, oriented x3, no apparent distress and well nourished Constitutional Narrative: Overweight, elderly white female sitting up in bed, appears comfortable nontoxic, watching television Assessment & Plan Assessment/Plan (1) Closed left hip fracture: (2) History of hemiarthroplasty of left hip: (3) Hyponatremia: PLAN: Plan Closed left hip fracture status post fixator screw placement 12/27/2021 -Screw with loosening -Postop day 2 left hemiarthroplasty -Weightbearing as tolerated -PT/OT consultation -Posterior hip precautions -Lovenox subcu 40 mg daily for DVT prophylaxis -Wound VAC x10 days and sterile dressing -Follow-up x-rays and outpatient visit with Dr. Hemphill in 2 weeks -Okay for discharge to skilled facility from a medical standpoint Anemia -Hemoglobin is stable -Patient with no obvious signs of bleeding at this time Hyponatremia -Mild at 131 -Appears that this has been a problem previously -No further work-up needed at this time Hyperlipidemia -Patient does not appear to be on any statin at baseline -We will leave to outpatient follow-up Hypothyroidism -Continue home levothyroxine Chronic pain -Continue home methadone -Continue home as needed oxycodone for breakthrough Chronic steroid use -Patient is on prednisone 10 mg daily for pain -Would encourage outpatient follow-up and wean as this increases her risk for fracture Hypertension -Continue home metoprolol -Monitor blood pressures Constipation -Likely related to chronic narcotic use -Continue home stool softeners Depression/anxiety/insomnia -Continue home Lexapro -continue home trazodone -Continue home Seroquel -Continue home BuSpar GERD -Continue home PPI History of breast cancer -In remission -No current issues DVT prophylaxis -Lovenox subcu daily -SCDs while hospitalized CODE STATUS -DNR CCA no intubation Charges/Coding Visit Charges Inpatient E&M: 11441 Subs Hosp L1
--- NOTE | 2022-01-22 20:13 | NURSING ---
pt placed on O2 2L NC
[2022-01-22] MEDS: traZODone 50 MG Tablet PO (22:09)
[2022-01-23] VITALS (10 sets, daily range): BP systolic 104–113; BP diastolic 45–67; PULSE 73–97; RESP 16–20; TEMP 36.4–37.2; O2SAT 92–97
[2022-01-23] MEDS: Acetaminophen 500 MG Tablet 1000 MG PO ×3 (06:00→22:23)
[2022-01-23] MEDS: Levothyroxine 150 MCG Tablet PO (06:00)
[2022-01-23 07:04] LABS: Hematocrit 28.8 % (37-47); Hemoglobin 9.2 g/dL (12.0-15.0); Mean Corp Hgb Conc 31.9 g/dL (32-36); Mean Corpuscular Hgb 25.8 pg (27.0-32.0); Mean Corpuscular Volume 80.9 fL (81-99); Mean Platelet Vol. 10.7 fl (6.2-12.0); Platelet Count 187 K/mm3 (150-450); RBC Distribution Width CV 18.8 % (11.6-14.6); RBC Distribution Width SD 55.2 fl (35.1-43.9); Red Blood Count 3.56 M/mm3 (4.2-5.4); White Blood Count 3.5 K/mm3 (4.4-11.0)
--- NOTE | 2022-01-23 07:28 | RAD_ITS ---
INDICATION: Shortness of breath EXAMINATION/TECHNIQUE: X-RAY - XR Chest 1 View COMPARISON: Chest x-ray from 01/20/2022 FINDINGS: Patient is slightly rotated to the right. LINES/DEVICES: None. LUNGS: No pulmonary edema or focal airspace consolidation. No sizable pleural effusion. No pneumothorax detected. MEDIASTINUM AND CARDIOVASCULAR STRUCTURES: Heart size within normal limits. Mediastinal contours unremarkable. BONES AND SOFT TISSUES: Thoracolumbar spinal fusion hardware noted. Cholecystectomy clips present. RAD/Chest 1 View (Portable) IMPRESSION: No radiographic evidence of acute cardiopulmonary disease. Electronically Signed: Maxx Calderón MD at 7:50 EDT ,
[2022-01-23] MEDS: Multivitamins,Ther W-Minerals Tablet 1 TABLET PO (08:18)
[2022-01-23] MEDS: Juven (unflavored) Packet 1 PACKET PO ×2 (08:18→16:28)
[2022-01-23] MEDS: Doxycycline 100 MG CAPSULE PO ×2 (10:21→22:22)
[2022-01-23] MEDS: busPIRone 5 MG Tablet PO ×2 (10:21→22:22)
[2022-01-23] MEDS: guaiFENesin 600 MG Tablet PO ×2 (10:22→22:22)
[2022-01-23] MEDS: Enoxaparin 40 MG/0.4 ML Syringe SC (10:22)
[2022-01-23] MEDS: Escitalopram Oxalate 20 MG Tablet PO (10:22)
[2022-01-23] MEDS: Metoprolol(XL)Succ 50 MG Tablet PO (10:23)
[2022-01-23] MEDS: Pantoprazole Sodium 40 MG Tablet PO (10:23)
[2022-01-23] MEDS: QUEtiapine 25 MG Tablet PO ×2 (10:23→22:23)
[2022-01-23] MEDS: Methadone 10 MG Tablet PO ×2 (10:27→22:22)
--- NOTE | 2022-01-23 11:14 | PCM.PN.HOSP ---
Subjective Subjective Patient has no complaints. Had a transient hypoxia event overnight on room air at 85%. Now on 2 L nasal cannula. Patient has no fever or significant cough. She has not been using her incentive spirometer. Objective Data Objective Data Vital Signs: Vital Signs Temp Pulse Resp BP Pulse Ox O2 Del Method O2 Flow Rate 97.5 F L 73 16 105/53 L 95 Nasal Cannula 2 01/23/22 08:07 01/23/22 10:23 01/23/22 08:07 01/23/22 08:07 01/23/22 08:07 01/23/22 08:11 01/23/22 08:11 Oxygen Flow Rate (L/min) 2 Oxygen Delivery Method Nasal Cannula Weight: 76.402 kg Body Mass Index (BMI) 29.8 Intake & Output: Intake and Output for Last 24 Hours 01/21/22 01/22/22 01/23/22 23:59 23:59 23:59 Intake Total 1100 / 1100 220 / 220 Balance 1100 / 1100 220 / 220 Lab / Micro Data Result Diagrams: 01/23/22 06:42 01/21/22 06:25 Labs: Laboratory Results - last 24 hr 01/23/22 06:42: WBC 3.5 L, RBC 3.56 L, Hgb 9.2 L, Hct 28.8 L, MCV 80.9 L, MCH 25.8 L, MCHC 31.9 L, RDW Std Deviation 55.2 H, RDW Coeff of Colin 18.8 H, Plt Count 187, MPV 10.7 Radiography Diagnostic Testing: Radiology Impression Chest X-Ray 01/23/22 07:28 IMPRESSION: No radiographic evidence of acute cardiopulmonary disease. Electronically Signed: Maxx Calderón MD at 7:50 EDT , Physical Exam Const alert, oriented x3, no apparent distress and well nourished Constitutional Narrative: Overweight, elderly white female sitting up in bed, appears comfortable nontoxic, watching television, nursing at bedside HEENT head/scalp atraumatic and moist oral mucous membranes HEENT Narrative: Dentition is poor, Mallampati is 3 Head and Scalp: normocephalic Resp normal respiratory effort, no retractions, no use of accessory muscles and clear to auscultation bilaterally Resp Narrative: Diminished but clear Auscultation: Negative for crackles, rales, rhonchi or wheezes Cardio regular rate, regular rhythm, S1 normal heart sound, S2 normal heart sound, no murmurs, no rub, no gallops and no clicks GI normal to inspection, nondistended, normoactive bowel sounds, soft to palpation and non-tender Extremity no clubbing, cyanosis or edema Extremity Narrative: Left lower extremity with wound VAC and polar ice in place Neuro oriented x3 and no focal motor deficits Neuro Narrative: Decreased movement left lower extremity secondary to pain Speech: speech normal Assessment & Plan Assessment/Plan (1) Closed left hip fracture: (2) History of hemiarthroplasty of left hip: (3) Hyponatremia: PLAN: Plan Closed left hip fracture status post fixator screw placement 12/27/2021 -Screw with loosening -Postop day 3 left hemiarthroplasty -Weightbearing as tolerated -PT/OT following -Posterior hip precautions -Lovenox subcu 40 mg daily for DVT prophylaxis -Wound VAC x10 days and sterile dressing -Follow-up x-rays and outpatient visit with Dr. Hemphill in 2 weeks -Okay for discharge to skilled facility from a medical standpoint Hypoxia -Suspect postoperative atelectasis as patient has not been moving around much nor she been using her incentive spirometer. -Chest x-ray was performed this morning and showed no acute pathology -We will dose Lasix 20 mg x 1 to follow-up BMP in a.m. -Currently on 2 L nasal cannula but will wean as able--> discussed with nursing Anemia -Hemoglobin is stable -Patient with no obvious signs of bleeding at this time Hyponatremia -Mild at 131 -Appears that this has been a problem previously -No further work-up needed at this time Hyperlipidemia -Patient does not appear to be on any statin at baseline -We will leave to outpatient follow-up Hypothyroidism -Continue home levothyroxine Chronic pain -Continue home methadone -Continue home as needed oxycodone for breakthrough Chronic steroid use -Patient is on prednisone 10 mg daily for pain -Would encourage outpatient follow-up and wean as this increases her risk for fracture Hypertension -Continue home metoprolol -Monitor blood pressures Constipation -Likely related to chronic narcotic use -Continue home stool softeners Depression/anxiety/insomnia -Continue home Lexapro -continue home trazodone -Continue home Seroquel -Continue home BuSpar GERD -Continue home PPI History of breast cancer -In remission -No current issues DVT prophylaxis -Lovenox subcu daily -SCDs while hospitalized CODE STATUS -DNR CCA no intubation Charges/Coding Visit Charges Inpatient E&M: 76021 Subs Hosp L2
[2022-01-23] MEDS: Furosemide 20 MG/2 ML VIAL IV (11:59)
[2022-01-23] MEDS: 0.9% Saline Lock 10 ML Syringe IV ×2 (11:59→22:23)
--- NOTE | 2022-01-23 17:39 | PCM.PN.ORT ---
Subjective Subjective Patient seen and examined. Denies any new complaints. Denies fevers or chills, nausea vomiting, chest pain or shortness of breath. Up with therapy today. Objective Data Objective Data Vital Signs: Vital Signs Temp Pulse Resp BP Pulse Ox O2 Del Method O2 Flow Rate 98.7 F 97 16 104/51 L 97 Nasal Cannula 1 01/23/22 14:00 01/23/22 14:00 01/23/22 14:00 01/23/22 14:00 01/23/22 14:00 01/23/22 14:00 01/23/22 14:00 Oxygen Flow Rate (L/min) 1 Oxygen Delivery Method Nasal Cannula Weight: 168 lb 7.001 oz Body Mass Index (BMI) 29.8 Intake & Output: Intake and Output for Last 24 Hours 01/21/22 01/22/22 01/23/22 23:59 23:59 23:59 Intake Total 1100 / 1100 220 / 220 Balance 1100 / 1100 220 / 220 Lab / Micro Data Result Diagrams: 01/23/22 06:42 01/21/22 06:25 Labs: Laboratory Results - last 24 hr 01/23/22 06:42: WBC 3.5 L, RBC 3.56 L, Hgb 9.2 L, Hct 28.8 L, MCV 80.9 L, MCH 25.8 L, MCHC 31.9 L, RDW Std Deviation 55.2 H, RDW Coeff of Colin 18.8 H, Plt Count 187, MPV 10.7 Radiography Diagnostic Testing: Radiology Impression Chest X-Ray 01/23/22 07:28 IMPRESSION: No radiographic evidence of acute cardiopulmonary disease. Electronically Signed: Maxx Calderón MD at 7:50 EDT , Physical Exam Narrative General - A&Ox3, NAD. VSS/AF Left lower extremity -incisional wound VAC clean dry and intact with good suction seal. No output noted in canister. SILT Sural, Saphenous, SPN, DPN, Tibial N. distributions. DP, PT 2+. BCR. DF, PF, EHL 5/5. No calf TTP. Assessment & Plan Assessment/Plan (1) History of hemiarthroplasty of left hip: (2) Closed left hip fracture: PLAN: POD#3 s/p conversion left hip screw fixation to cemented hip hemiarthroplasty - Pain control-patient appears comfortable - Medicine following for medical management - PT/OT -posterior hip precautions left, weight-bear as tolerated left lower extremity - DVT PPX -Lovenox 40 mg subcutaneously daily. Hemoglobin improved this morning. No evidence of active bleeding. - Case management - D/C planning. Patient stable for discharge pending pre-CERT to SNF.
[2022-01-23] MEDS: traZODone 50 MG Tablet PO (22:22)
[2022-01-23] MEDS: Senna/Docusate Sodium 1 Tablet PO (22:23)
[2022-01-24] VITALS (12 sets, daily range): BP systolic 95–110; BP diastolic 47–59; PULSE 66–89; RESP 18–20; TEMP 36.6–37.3; O2SAT 93–97
[2022-01-24] MEDS: Acetaminophen 500 MG Tablet 1000 MG PO ×3 (05:40→22:01)
[2022-01-24] MEDS: Levothyroxine 150 MCG Tablet PO (05:41)
[2022-01-24 07:15] LABS: Anion Gap 6 (5-15); BUN 25 mg/dL (7-18); BUN/Creat Ratio 37.7 RATIO (10-20); Calcium,Total 8.2 mg/dL (8.5-10.1); Chloride 93 mmol/L (98-107); Creatinine, Serum 0.66 mg/dL (0.55-1.02); EST Glomerular Filtration Rate 92 mL/min (>60); Est Glom Filt Rate - Afr Amer 111 mL/min (>60); Estimated Creatinine Clearance 40.21 ml/min; Glucose 91 mg/dL (74-106); Potassium 3.4 mmol/L (3.5-5.1); Sodium Level 128 mmol/L (136-145)
--- NOTE | 2022-01-24 07:20 | PCM.PN.ORT ---
Subjective Subjective Patient seen and examined. Resting comfortably. No acute events overnight. Objective Data Objective Data Vital Signs: Vital Signs Temp Pulse Resp BP Pulse Ox O2 Del Method O2 Flow Rate 98.2 F 84 20 H 104/59 L 97 Nasal Cannula 1 01/24/22 05:34 01/24/22 05:34 01/24/22 05:34 01/24/22 05:34 01/24/22 05:34 01/24/22 05:34 01/24/22 05:34 Oxygen Flow Rate (L/min) 1 Oxygen Delivery Method Nasal Cannula Weight: 168 lb 7.001 oz Body Mass Index (BMI) 29.8 Intake & Output: Intake and Output for Last 24 Hours 01/22/22 01/23/22 01/24/22 23:59 23:59 23:59 Intake Total 620 / 620 Balance 620 / 620 Lab / Micro Data Result Diagrams: 01/23/22 06:42 01/24/22 06:20 Labs: Laboratory Results - last 24 hr 01/24/22 06:20: Sodium 128 L, Potassium 3.4 L, Chloride 93 L, Carbon Dioxide 29.0, Anion Gap 6, BUN 25 H, Creatinine 0.66, Estim Creat Clear Calc 40.21, Est GFR (MDRD) Af Amer 111, Est GFR (MDRD) Non-Af 92, BUN/Creatinine Ratio 37.7 H, Glucose 91, Calcium 8.2 L Radiography Diagnostic Testing: Radiology Impression Chest X-Ray 01/23/22 07:28 IMPRESSION: No radiographic evidence of acute cardiopulmonary disease. Electronically Signed: Maxx Calderón MD at 7:50 EDT , Physical Exam Narrative General - A&Ox3, NAD. VSS/AF Left lower extremity -incisional wound VAC clean dry and intact with good suction seal. No output noted in canister. SILT Sural, Saphenous, SPN, DPN, Tibial N. distributions. DP, PT 2+. BCR. DF, PF, EHL 5/5. No calf TTP. Assessment & Plan Assessment/Plan (1) History of hemiarthroplasty of left hip: (2) Closed left hip fracture: PLAN: POD#4 s/p conversion left hip screw fixation to cemented hip hemiarthroplasty - Pain control-patient appears comfortable - Medicine following for medical management - PT/OT -posterior hip precautions left, weight-bear as tolerated left lower extremity - DVT PPX -Lovenox 40 mg subcutaneously daily, SCDs, TEDs - Case management - D/C planning. Patient stable for discharge pending pre-CERT to SNF.
[2022-01-24] MEDS: Doxycycline 100 MG CAPSULE PO ×2 (09:36→22:01)
[2022-01-24] MEDS: Potassium Chloride Oral Tablet 20 MEQ 40 MEQ PO (09:36)
[2022-01-24] MEDS: Juven (unflavored) Packet 1 PACKET PO ×2 (09:36→16:53)
[2022-01-24] MEDS: busPIRone 5 MG Tablet PO ×2 (09:36→22:01)
[2022-01-24] MEDS: Multivitamins,Ther W-Minerals Tablet 1 TABLET PO (09:36)
[2022-01-24] MEDS: Enoxaparin 40 MG/0.4 ML Syringe SC (09:37)
[2022-01-24] MEDS: Pantoprazole Sodium 40 MG Tablet PO (09:37)
[2022-01-24] MEDS: Senna/Docusate Sodium 1 Tablet PO (09:37)
[2022-01-24] MEDS: QUEtiapine 25 MG Tablet PO ×2 (09:37→22:00)
[2022-01-24] MEDS: Escitalopram Oxalate 20 MG Tablet PO (09:37)
[2022-01-24] MEDS: guaiFENesin 600 MG Tablet PO ×2 (09:37→22:00)
[2022-01-24] MEDS: Methadone 10 MG Tablet PO ×2 (09:39→22:00)
--- NOTE | 2022-01-24 10:33 | WOUNDNOTE ---
wound photo: mid upper back
--- NOTE | 2022-01-24 10:39 | PCM.PN.HOSP ---
Subjective Subjective No issues over night. Patient has been weaned to 1 L nasal cannula. She complains of ongoing pain and we discussed that the pain is not going to go away immediately given the fact she had a hip replacement. She is up in a chair. Objective Data Objective Data Vital Signs: Vital Signs Temp Pulse Resp BP Pulse Ox O2 Del Method O2 Flow Rate 97.9 F 86 18 98/50 L 95 Nasal Cannula 1 01/24/22 09:53 01/24/22 09:53 01/24/22 09:53 01/24/22 09:53 01/24/22 09:53 01/24/22 10:02 01/24/22 10:02 Oxygen Flow Rate (L/min) 1 Oxygen Delivery Method Nasal Cannula Weight: 76.402 kg Body Mass Index (BMI) 29.8 Intake & Output: Intake and Output for Last 24 Hours 01/22/22 01/23/22 01/24/22 23:59 23:59 23:59 Intake Total 620 / 620 Balance 620 / 620 Lab / Micro Data Result Diagrams: 01/23/22 06:42 01/24/22 06:20 Labs: Laboratory Results - last 24 hr 01/24/22 06:20: Sodium 128 L, Potassium 3.4 L, Chloride 93 L, Carbon Dioxide 29.0, Anion Gap 6, BUN 25 H, Creatinine 0.66, Estim Creat Clear Calc 40.21, Est GFR (MDRD) Af Amer 111, Est GFR (MDRD) Non-Af 92, BUN/Creatinine Ratio 37.7 H, Glucose 91, Calcium 8.2 L Physical Exam Const alert, oriented x3, no apparent distress and well nourished Constitutional Narrative: Overweight, elderly white female sitting up in a chair eating breakfast, appears comfortable nontoxic HEENT head/scalp atraumatic, moist oral mucous membranes and oropharynx normal HEENT Narrative: Dentition is poor, Mallampati 2-3, no thrush Resp normal respiratory effort, no retractions, no use of accessory muscles and clear to auscultation bilaterally Resp Narrative: Diminished but clear Auscultation: Negative for crackles, rales, rhonchi or wheezes Cardio regular rate, regular rhythm, S1 normal heart sound, S2 normal heart sound, no murmurs, no rub, no gallops and no clicks GI normal to inspection, nondistended, normoactive bowel sounds, soft to palpation and non-tender Extremity no clubbing, cyanosis or edema Neuro oriented x3 and no focal motor deficits Speech: speech normal Psych Psych Narrative: Affect is somewhat flat today and mood seems depressed Assessment & Plan Assessment/Plan (1) Closed left hip fracture: (2) History of hemiarthroplasty of left hip: (3) Hyponatremia: (4) Hypokalemia: PLAN: Plan Closed left hip fracture status post fixator screw placement 12/27/2021 -Screw with loosening -Postop day 3 left hemiarthroplasty -Weightbearing as tolerated -PT/OT following -Posterior hip precautions -Lovenox subcu 40 mg daily for DVT prophylaxis -Wound VAC x10 days and sterile dressing -Follow-up x-rays and outpatient visit with Dr. Hemphill in 2 weeks -Remains stable for discharge to skilled facility from a medical standpoint -Would recommend follow-up BMP in 3 to 4 days after discharge to reassess sodium and potassium Hypokalemia -40 mill equivalents p.o. potassium -Would repeat in 3 to 4 days if gets discharged today if not we will repeat in a.m. Hypoxia -Suspect postoperative atelectasis as patient has not been moving around much nor she been using her incentive spirometer. -Chest x-ray was performed this morning and showed no acute pathology -Oxygen has been weaned to 1 L-->Would recommend trial off prior to discharge to see how she does as she is 94 to 98% on 1 L Anemia -Hemoglobin is stable -Patient with no obvious signs of bleeding at this time Hyponatremia -128 today however likely down with diuretic given yesterday -Would recommend repeat for stability in the next 2 to 3 days after discharge if patient is not discharged today will follow-up with BMP in a.m. -Appears this is somewhat chronic -No further work-up needed at this time Hyperlipidemia -Patient does not appear to be on any statin at baseline -We will leave to outpatient follow-up Hypothyroidism -Continue home levothyroxine Chronic pain -Continue home methadone -Continue home as needed oxycodone for breakthrough Chronic steroid use -Patient is on prednisone 10 mg daily for pain -Would encourage outpatient follow-up and wean as this increases her risk for fracture Hypertension -Continue home metoprolol -Monitor blood pressures Constipation -Likely related to chronic narcotic use -Continue home stool softeners Depression/anxiety/insomnia -Continue home Lexapro -continue home trazodone -Continue home Seroquel -Continue home BuSpar GERD -Continue home PPI History of breast cancer -In remission -No current issues DVT prophylaxis -Lovenox subcu daily -SCDs while hospitalized CODE STATUS -DNR CCA no intubation Charges/Coding Visit Charges Inpatient E&M: 93481 Subs Hosp L2
--- NOTE | 2022-01-24 11:26 | CASEMGMT ---
Discharge Feed And Farm Management Adviser This fiction writer followed up on pending pre-cert. Updated therapy notes sent to [facility]. Will follow up. Kal ALFARO Scene And Lighting Design Lecturer
[2022-01-24] MEDS: Ondansetron ODT 4 MG Tablet PO (16:02)
[2022-01-24] MEDS: oxyCODONE 5 MG Tablet 10 MG PO (16:53)
[2022-01-24] MEDS: traZODone 50 MG Tablet PO (22:02)
[2022-01-24] MEDS: 0.9% Saline Lock 10 ML Syringe IV (22:02)
[2022-01-25] VITALS (9 sets, daily range): BP systolic 98–114; BP diastolic 48–59; PULSE 66–93; RESP 16–22; TEMP 36.6–37.4; O2SAT 91–95
[2022-01-25] MEDS: Acetaminophen 500 MG Tablet 1000 MG PO ×3 (05:43→21:23)
[2022-01-25] MEDS: Levothyroxine 150 MCG Tablet PO (05:43)
[2022-01-25 06:50] LABS: Absolute Lymphocyte Count 2.61 X10^3/uL (0.83-4.51); Absolute Neutrophil Count 1.8 X10^3/uL (2.0-7.7); Eosinophil# 0.01 X10^3/uL; Eosinophils% 0.2 % (0-5); Hematocrit 27.7 % (37-47); Hemoglobin 8.6 g/dL (12.0-15.0); Lymphocyte # 2.61 X10^3/ul (0.83-4.51); Lymphocyte % 55.7 % (19-41); Mean Corpuscular Hgb 24.9 pg (27.0-32.0); Mean Corpuscular Volume 80.3 fL (81-99); Mean Platelet Vol. 10.5 fl (6.2-12.0); Monocyte# 0.28 X10^3/uL; NRBC Flagged by Analyzer 0 % (0-5); Neutrophil # 1.77 X10^3/uL (2.7-7.7); Neutrophil % 37.7 % (47-70); Platelet Count 186 K/mm3 (150-450); RBC Distribution Width CV 18.6 % (11.6-14.6); RBC Distribution Width SD 54.2 fl (35.1-43.9); Red Blood Count 3.45 M/mm3 (4.2-5.4); White Blood Count 4.7 K/mm3 (4.4-11.0)
[2022-01-25 07:18] LABS: Anion Gap 7 (5-15); BUN 18 mg/dL (7-18); BUN/Creat Ratio 32.1 RATIO (10-20); Calcium,Total 8.3 mg/dL (8.5-10.1); Chloride 97 mmol/L (98-107); Creatinine, Serum 0.56 mg/dL (0.55-1.02); EST Glomerular Filtration Rate 112 mL/min (>60); Est Glom Filt Rate - Afr Amer 135 mL/min (>60); Estimated Creatinine Clearance 40.21 ml/min; Glucose 88 mg/dL (74-106); Potassium 3.6 mmol/L (3.5-5.1); Sodium Level 130 mmol/L (136-145)
[2022-01-25] MEDS: proCHLORPERazine 10 MG/2 ML Vial 5 MG IV ×2 (08:07→21:57)
--- NOTE | 2022-01-25 08:31 | PN.ORTHO_ITS ---
Subjective Subjective Patient seen and examined. Reports some vomiting overnight improved with Zofran. Denies fevers or chills, chest pain or shortness of breath. Objective Data Objective Data Vital Signs: Vital Signs Temp Pulse Resp BP Pulse Ox O2 Del Method O2 Flow Rate 99.3 F H 68 16 114/48 L 95 Room Air 1 01/25/22 07:50 01/25/22 07:50 01/25/22 07:50 01/25/22 07:50 01/25/22 07:50 01/25/22 07:50 01/25/22 03:28 Oxygen Flow Rate (L/min) 1 Oxygen Delivery Method Room Air Weight: 168 lb 7.001 oz Body Mass Index (BMI) 29.8 Intake & Output: Intake and Output for Last 24 Hours 01/23/22 01/24/22 01/25/22 23:59 23:59 23:59 Intake Total 620 / 620 200 / 200 Output Total 400 / 400 Balance 620 / 620 200 / 200 -400 / -400 Lab / Micro Data Result Diagrams: 01/25/22 06:43 01/25/22 06:43 Labs: Laboratory Results - last 24 hr 01/25/22 06:43: WBC 4.7, RBC 3.45 L, Hgb 8.6 L, Hct 27.7 L, MCV 80.3 L, MCH 24.9 L, MCHC 31.0 L, RDW Std Deviation 54.2 H, RDW Coeff of Colin 18.6 H, Plt Count 186, MPV 10.5, Immature Gran % (Auto) 0.400, Neut % (Auto) 37.7 L, Lymph % (Auto) 55.7 H, [place] % (Auto) 6.0, Eos % (Auto) 0.2, Baso % (Auto) 0.0, Absolute Neuts (auto) 1.8 L, Absolute Lymphs (auto) 2.61, Nucleated RBC % 0 01/25/22 06:43: Sodium 130 L, Potassium 3.6, Chloride 97 L, Carbon Dioxide 26.0, Anion Gap 7, BUN 18, Creatinine 0.56, Estim Creat Clear Calc 40.21, Est GFR (MDRD) Af Amer 135, Est GFR (MDRD) Non-Af 112, BUN/Creatinine Ratio 32.1 H, Glucose 88, Calcium 8.3 L Physical Exam Narrative General - A&Ox3, NAD. VSS/AF Left lower extremity -incisional wound VAC clean dry and intact with good suction seal. No output noted in canister. SILT Sural, Saphenous, SPN, DPN, Tibial N. distributions. DP, PT 2+. BCR. DF, PF, EHL 5/5. No calf TTP. Assessment & Plan Assessment/Plan (1) History of hemiarthroplasty of left hip: (2) Closed left hip fracture: PLAN: POD#5 s/p conversion left hip screw fixation to cemented hip hemiarthroplasty - Pain control-patient appears comfortable - Medicine following for medical management -Encourage incentive spirometry for suspected atelectasis - PT/OT -posterior hip precautions left, weight-bear as tolerated left lower extremity - DVT PPX -Lovenox 40 mg subcutaneously daily, SCDs, TEDs - Case management - D/C planning. Patient stable for discharge pending pre-CERT to SNF.
--- NOTE | 2022-01-25 08:49 | CASEMGMT ---
Discharge Kennel Attendant Naheed from [facility] reached out. Pre-cert has been obtained. ROMEO Mota notified. Kal ALFARO Life Manager
[2022-01-25] MEDS: oxyCODONE 5 MG Tablet 10 MG PO (09:14)
--- NOTE | 2022-01-25 09:33 | RAD_ITS ---
STUDY: X-RAY - ABDOMEN/PELVIS REASON FOR EXAM: Female, 76 years old. Nausea TECHNIQUE: Single AP view of the abdomen / pelvis. COMPARISON: None. FINDINGS: Normal visualized lung bases. There is an unremarkable bowel gas pattern. Surgical clips are seen in the right upper quadrant suggestive of prior cholecystectomy. Normal soft tissue structures. Prior screw and lei fixation of the lower dorsal and lumbar spine with multilevel vertebroplasty. Status post left hip replacement. RAD/Abdomen Single View IMPRESSION: Nonspecific bowel gas pattern. Electronically Signed: Russell Hewitt MD at 12:44 EDT ,
--- NOTE | 2022-01-25 09:50 | CASEMGMT ---
Social Work SW notified pt's DrAlisha, pt and pt's son of insurance authorization. Pt's ready to discharge. SW notified pt and pt's son, Stas, that pt will discharge back to [facility] today. Both voiced understanding. ROMEO called Naheed at [facility] to inform that pt will be discharging today as well. Naheed understanding. PLAN: [facility] DANNY Galan
[2022-01-25] MEDS: busPIRone 5 MG Tablet PO ×2 (09:51→21:23)
[2022-01-25] MEDS: QUEtiapine 25 MG Tablet PO ×2 (09:52→21:23)
[2022-01-25] MEDS: guaiFENesin 600 MG Tablet PO ×2 (09:52→21:23)
[2022-01-25] MEDS: Pantoprazole Sodium 40 MG Tablet PO (09:52)
[2022-01-25] MEDS: Juven (unflavored) Packet 1 PACKET PO ×2 (09:52→17:15)
[2022-01-25] MEDS: Metoprolol(XL)Succ 50 MG Tablet PO (09:52)
[2022-01-25] MEDS: Doxycycline 100 MG CAPSULE PO ×2 (09:52→21:23)
[2022-01-25] MEDS: Multivitamins,Ther W-Minerals Tablet 1 TABLET PO (09:52)
[2022-01-25] MEDS: Methadone 10 MG Tablet PO ×2 (09:52→21:23)
[2022-01-25] MEDS: Escitalopram Oxalate 20 MG Tablet PO (09:53)
[2022-01-25] MEDS: Enoxaparin 40 MG/0.4 ML Syringe SC (09:54)
--- NOTE | 2022-01-25 11:02 | NURSING ---
Call from [facility] lab stating pt covid scab came back positive. The CM let Dr. Hemphill be aware of findings.
--- NOTE | 2022-01-25 11:10 | CASEMGMT ---
Social Work ROMEO made aware from pt Nurse, Chastity, that pt is Covid Positive. SW notified pt and called [facility]. [facility] now not able to accept pt. SW called pt son and spoke to pt. Made aware pt is positive for Covid. Discussed next options. SW shared accepting facilities for Covid pt's currently are [facility] in [place] and [facility] in [place]. [facility] in [place] was preferred location. Pt and pt son declined a list as options were limited with the Covid diagnosis. ROMEO sent referral to [facility]. Plan: [facility], pending acceptance and precert DANNY Galan
--- NOTE | 2022-01-25 11:30 | PN.HOSP_ITS ---
Subjective Subjective Patient complaining that her hip is still painful. We discussed that she is going to have ongoing pain in the postoperative period from hip replacement. She voiced understanding. She is had some nausea that is overall unexplained. She is having bowel movements. COVID-19 test was performed in preparation for discharge and was incidentally found to be positive. Patient remains on room air and is stable. Objective Data Objective Data Vital Signs: Vital Signs Temp Pulse Resp BP Pulse Ox O2 Del Method O2 Flow Rate 98 F 73 22 H 109/55 L 94 Room Air 91 01/25/22 09:47 01/25/22 09:52 01/25/22 09:47 01/25/22 09:47 01/25/22 09:47 01/25/22 10:27 01/25/22 07:59 Oxygen Flow Rate (L/min) 91 Oxygen Delivery Method Room Air Weight: 76.402 kg Body Mass Index (BMI) 29.8 Intake & Output: Intake and Output for Last 24 Hours 01/23/22 01/24/22 01/25/22 23:59 23:59 23:59 Intake Total 620 / 620 200 / 200 Output Total 400 / 400 Balance 620 / 620 200 / 200 -400 / -400 Lab / Micro Data Result Diagrams: 01/25/22 06:43 01/25/22 06:43 Labs: Laboratory Results - last 24 hr 01/25/22 06:43: WBC 4.7, RBC 3.45 L, Hgb 8.6 L, Hct 27.7 L, MCV 80.3 L, MCH 24.9 L, MCHC 31.0 L, RDW Std Deviation 54.2 H, RDW Coeff of Colin 18.6 H, Plt Count 186, MPV 10.5, Immature Gran % (Auto) 0.400, Neut % (Auto) 37.7 L, Lymph % (Auto) 55.7 H, [place] % (Auto) 6.0, Eos % (Auto) 0.2, Baso % (Auto) 0.0, Absolute Neuts (auto) 1.8 L, Absolute Lymphs (auto) 2.61, Nucleated RBC % 0 01/25/22 06:43: Sodium 130 L, Potassium 3.6, Chloride 97 L, Carbon Dioxide 26.0, Anion Gap 7, BUN 18, Creatinine 0.56, Estim Creat Clear Calc 40.21, Est GFR (MDRD) Af Amer 135, Est GFR (MDRD) Non-Af 112, BUN/Creatinine Ratio 32.1 H, Glucose 88, Calcium 8.3 L Micro: Microbiology 01/25/22 10:06 Nasal Secretion SARS-CoV-2 Antigen (Rapid) - Final SARS-CoV-2 (COVID 19) Physical Exam Const alert, oriented x3, no apparent distress and well nourished Constitutional Narrative: Overweight, elderly white female sitting up in a chair eating breakfast, appears comfortable, nontoxic HEENT head/scalp atraumatic, moist oral mucous membranes and oropharynx normal Resp normal respiratory effort, no retractions, no use of accessory muscles and clear to auscultation bilaterally Resp Narrative: Diminished but clear Auscultation: Negative for crackles, rales, rhonchi or wheezes Cardio regular rate, regular rhythm, S1 normal heart sound, S2 normal heart sound, no murmurs, no rub, no gallops and no clicks GI normal to inspection, nondistended, normoactive bowel sounds, soft to palpation and non-tender Extremity no clubbing, cyanosis or edema Extremity Narrative: 2+ pedal pulses Neuro oriented x3 and no focal motor deficits Neuro Narrative: Decreased movement left lower extremity secondary to pain Speech: speech normal Psych Psych Narrative: Affect is flat Assessment & Plan Assessment/Plan (1) Closed left hip fracture: (2) History of hemiarthroplasty of left hip: (3) Hyponatremia: (4) Hypokalemia: (5) COVID-19 virus infection: (6) Nausea: PLAN: Plan Closed left hip fracture status post fixator screw placement 12/27/2021 -Screw with loosening -Postop day 4 left hemiarthroplasty -Weightbearing as tolerated -PT/OT following -Posterior hip precautions -Lovenox subcu 40 mg daily for DVT prophylaxis -Wound VAC x10 days and sterile dressing -Follow-up x-rays and outpatient visit with Dr. Hemphill in 2 weeks -Remains stable for discharge to skilled facility from a medical standpoint -Would recommend follow-up BMP in 3 to 4 days after discharge to reassess sodium and potassium Acute COVID-19 infection -Patient appears to be overall fairly asymptomatic -Is having some nausea which may be attributed to this infection -No intervention needed at this time Nausea -Check KUB -Patient is having bowel movements -Compazine x1 dose -Would avoid medications that prolong QTc interval as patient is on methadone and Seroquel already -May be related to COVID-19 infection Hypokalemia - resolved Hypoxia -Resolved -Patient is on room air with sats of 94-96% Anemia -Hemoglobin is stable -Patient with no obvious signs of bleeding at this time Hyponatremia - stabilizing at 130 -Would recommend repeat BMP after discharge and 1 week -Appears this is somewhat chronic -No further work-up needed at this time Hyperlipidemia -Patient does not appear to be on any statin at baseline -We will leave to outpatient follow-up Hypothyroidism -Continue home levothyroxine Chronic pain -Continue home methadone -Continue home as needed oxycodone for breakthrough Chronic steroid use -Patient is on prednisone 10 mg daily for pain -Would encourage outpatient follow-up and wean as this increases her risk for fracture Hypertension -Continue home metoprolol -Monitor blood pressures Constipation -Likely related to chronic narcotic use -Continue home stool softeners Depression/anxiety/insomnia -Continue home Lexapro -continue home trazodone -Continue home Seroquel -Continue home BuSpar GERD -Continue home PPI History of breast cancer -In remission -No current issues DVT prophylaxis -Lovenox subcu daily -SCDs while hospitalized CODE STATUS -DNR CCA no intubation Charges/Coding Visit Charges Inpatient E&M: 47370 Subs Hosp L2
--- NOTE | 2022-01-25 14:47 | CASEMGMT ---
Discharge Station Supervisor Marcy from [facility] accepted patient. Pre-cert has been started and sent to [facility]. Kal ALFARO Accounts Payable Professional
[2022-01-25] MEDS: traZODone 50 MG Tablet PO (21:23)
[2022-01-25] MEDS: 0.9% Saline Lock 10 ML Syringe IV (21:57)
[2022-01-26] VITALS (7 sets, daily range): BP systolic 113–122; BP diastolic 61–64; PULSE 65–73; RESP 16–18; TEMP 36.7–37; O2SAT 91–95
[2022-01-26] MEDS: 0.9% Saline Lock 10 ML Syringe IV (04:43)
[2022-01-26] MEDS: Acetaminophen 500 MG Tablet 1000 MG PO ×2 (04:43→14:14)
[2022-01-26] MEDS: Levothyroxine 150 MCG Tablet PO (04:43)
[2022-01-26] MEDS: proCHLORPERazine 10 MG/2 ML Vial 5 MG IV (04:43)
[2022-01-26] MEDS: Enoxaparin 40 MG/0.4 ML Syringe SC (09:05)
[2022-01-26] MEDS: Juven (unflavored) Packet 1 PACKET PO ×2 (09:06→14:14)
[2022-01-26] MEDS: Metoprolol(XL)Succ 50 MG Tablet PO (09:06)
[2022-01-26] MEDS: busPIRone 5 MG Tablet PO (09:06)
[2022-01-26] MEDS: Doxycycline 100 MG CAPSULE PO (09:09)
[2022-01-26] MEDS: Methadone 10 MG Tablet PO (09:10)
[2022-01-26] MEDS: QUEtiapine 25 MG Tablet PO (09:10)
[2022-01-26] MEDS: guaiFENesin 600 MG Tablet PO (09:10)
[2022-01-26] MEDS: Multivitamins,Ther W-Minerals Tablet 1 TABLET PO (09:10)
[2022-01-26] MEDS: Senna/Docusate Sodium 1 Tablet PO (09:10)
[2022-01-26] MEDS: Pantoprazole Sodium 40 MG Tablet PO (09:10)
[2022-01-26] MEDS: Escitalopram Oxalate 20 MG Tablet PO ×2 (09:10)
--- NOTE | 2022-01-26 12:08 | PCM.PN.HOSP ---
Subjective Subjective No reported issues overnight. Per discussion with nursing patient remained stable with no changes. Remains on room air. Awaiting pre-CERT for discharge to [place]. Objective Data Objective Data Vital Signs: Vital Signs Temp Pulse Resp BP Pulse Ox O2 Del Method O2 Flow Rate 98.6 F 71 16 116/61 91 Room Air 91 01/26/22 09:23 01/26/22 09:23 01/26/22 09:23 01/26/22 09:23 01/26/22 09:23 01/26/22 09:23 01/26/22 09:23 Oxygen Flow Rate (L/min) 91 Oxygen Delivery Method Room Air Weight: 76.402 kg Body Mass Index (BMI) 29.8 Intake & Output: Intake and Output for Last 24 Hours 01/24/22 01/25/22 01/26/22 23:59 23:59 23:59 Intake Total 200 / 200 Output Total 700 / 700 400 / 400 Balance 200 / 200 -700 / -700 -400 / -400 Lab / Micro Data Result Diagrams: 01/25/22 06:43 01/25/22 06:43 Micro: Microbiology 01/25/22 10:06 Nasal Secretion SARS-CoV-2 Antigen (Rapid) - Final SARS-CoV-2 (COVID 19) Radiography Diagnostic Testing: Radiology Impression KUB X-Ray 01/25/22 09:33 IMPRESSION: Nonspecific bowel gas pattern. Electronically Signed: Russell Hewitt MD at 12:44 EDT , Assessment & Plan Assessment/Plan (1) Closed left hip fracture: (2) History of hemiarthroplasty of left hip: (3) Hyponatremia: (4) Hypokalemia: (5) COVID-19 virus infection: (6) Nausea: PLAN: Plan Closed left hip fracture status post fixator screw placement 12/27/2021 -Screw with loosening -Postop day 5 left hemiarthroplasty -Weightbearing as tolerated -PT/OT following -Posterior hip precautions -Lovenox subcu 40 mg daily for DVT prophylaxis -Wound VAC x10 days and sterile dressing -Follow-up x-rays and outpatient visit with Dr. Spittle in 2 weeks -Remains stable for discharge to skilled facility from a medical standpoint -Would recommend follow-up BMP in 3 to 4 days after discharge to reassess sodium and potassium Acute COVID-19 infection -Patient appears to be overall fairly asymptomatic -Is having some nausea which may be attributed to this infection -As needed nausea medication available -No intervention needed at this time Nausea -KUB showed nonspecific bowel gas pattern -Patient is having bowel movements -ER and antiemetics -Would avoid medications that prolong QTc interval as patient is on methadone and Seroquel already -May be related to COVID-19 infection Hypokalemia - resolved Hypoxia -Resolved -Patient is on room air with sats of 94-96% Anemia -Hemoglobin is stable -Patient with no obvious signs of bleeding at this time Hyponatremia -Appears to be chronic and stable -Would recommend repeat BMP after discharge and 1 week -No further work-up needed at this time Hyperlipidemia -Patient does not appear to be on any statin at baseline -We will leave to outpatient follow-up Hypothyroidism -Continue home levothyroxine Chronic pain -Continue home methadone -Continue home as needed oxycodone for breakthrough Chronic steroid use -Patient is on prednisone 10 mg daily for pain -Would encourage outpatient follow-up and wean as this increases her risk for fracture Hypertension -Continue home metoprolol -Monitor blood pressures Constipation -Likely related to chronic narcotic use -Continue home stool softeners Depression/anxiety/insomnia -Continue home Lexapro -continue home trazodone -Continue home Seroquel -Continue home BuSpar GERD -Continue home PPI History of breast cancer -In remission -No current issues DVT prophylaxis -Lovenox subcu daily -SCDs while hospitalized CODE STATUS -DNR CCA no intubation Charges/Coding Visit Charges Inpatient E&M: 16831 Subs Hosp L1
--- NOTE | 2022-01-26 12:11 | PCM.TXEXTCAR ---
Diet Diet Order/Speech Therapy: 01/20/22 16:28 Diet: Regular - General Is pt able to select menu?: No Wound(s) LEFT HIP: Wound Type: Surgical Incision Dressing Change: Dry Sterile Dressing (Maintain incisional wound VAC Leti until 01/30/2022 then okay to remove and transition to dry sterile dressing changes daily) BACK: Wound Type: Pressure Injury Dressing Change: new Mepilex applied Suggestions for Active Care Change Position every (hours): 2 Therapies Weight Bearing: Weight bearing as tolerated Physical Therapy: Eval and Treat Occupational Therapy: Eval and Treat Problem/Diagnosis (1) Closed left hip fracture: Status: Acute Code(s): S72.002A - Fracture of unspecified part of neck of left femur, initial encounter for closed fracture Plan: s/p conversion left hip screw fixation to cemented hip hemiarthroplasty - Pain control-patient appears comfortable this morning. - PT/OT -posterior hip precautions left, weight-bear as tolerated left lower extremity - DVT PPX -Lovenox 40 mg subcutaneously daily Comment: With postoperative screw instability (2) History of hemiarthroplasty of left hip: Status: Acute Code(s): Z96.642 - Presence of left artificial hip joint (3) Hyponatremia: Status: Acute Code(s): E87.1 - Hypo-osmolality and hyponatremia (4) Hypokalemia: Status: Acute Code(s): E87.6 - Hypokalemia (5) COVID-19 virus infection: Status: Acute Code(s): U07.1 - COVID-19 (6) Nausea: Status: Acute Code(s): R11.0 - Nausea Allergies/Procedures Done in Hospital Allergies aspirin Allergy (Unknown, Verified 01/20/22 06:27) Abdominal pain, Sweating Type of Care/Length of Stay Estimated LOS: Convalescent Care Less Than 30 days Type of Care Needed: Skilled Rehab Potential: Good Prognosis: Good Additional Orders/Day of Discharge Day of Discharge: 01/22/22 Dietary and Speech Recommendations Dietitian Recommendations/Changes: Continue Regular diet and Javier BID with medpass for wound healing. Additional ONS as needed if PO regresses at meals. Follow Up Care Please Follow Up With: Jay Hemphill DO When: 1 week after discharge Discharge Plan Admission Admit Date/Time: 01/20/22 05:29 Primary Reason for Your Visit: Left hip surgery Attending Provider: Jay Hemphill Primary Care Provider: Kan Martin Chi Consulting Providers: Lo Penaloza Instructions Additional Instructions / Restrictions: Maintain Prevena wound VAC x10 days, then transition to dry sterile dressing changes for lateral left hip incision. Weightbearing as tolerated left lower extremity. Posterior hip precautions left with weightbearing as tolerated left lower extremity. Patient will need follow-up basic metabolic profile in 2 to 3 days after discharge from acute care facility Discharge Orders/Prescriptions Prescriptions: New acetaminophen 500 mg Tablet 1,000 mg PO Q8 14 Days Qty: 84 0RF doxycycline monohydrate 100 mg Capsule 100 mg PO BID 7 Days Qty: 14 0RF methadone 10 mg Tablet 10 mg PO BID 3 Days Qty: 6 0RF oxycodone 5 mg Tablet 5 mg PO Q6H PRN PRN (Reason: Pain 1-10) 3 Days Qty: 12 0RF Continued buspirone 5 mg tablet 5 mg PO BID escitalopram oxalate 20 mg tablet 20 mg PO DAILY esomeprazole magnesium 40 mg capsule,delayed release(DR/EC) 40 mg PO DAILY prednisone 10 mg Tablet 10 mg PO DAILY trazodone 50 mg Tablet 50 mg PO QHS methadone 10 mg Tablet 10 mg PO BID ondansetron 8 mg Tablet,Disintegrating 8 mg PO TID magnesium hydroxide 400 mg/5 mL Suspension 30 ml PO DAILY PRN (Reason: Constipation) levothyroxine 150 mcg Tablet 150 mcg PO DAILY oxycodone 5 mg Tablet 5 mg PO Q8H PRN (Reason: Pain) enoxaparin [Lovenox] 40 mg/0.4 mL Syringe 40 mg SUBCUT DAILY multivitamin with minerals Capsule 1 cap PO DAILY quetiapine [Seroquel XR] 50 mg Tablet Extended Release 24 Hr 50 mg PO QHS guaifenesin 600 mg Tablet Extended Release 12hr 600 mg PO Q12H metoprolol succinate 50 mg Capsule,Sprinkle,Er 24hr 50 mg PO DAILY melatonin 3 mg Capsule 3 mg PO QHS PRN (Reason: Insomnia) sennosides-docusate sodium 8.6-50 mg Capsule 1 tab-cap PO BID Referrals / Follow Up: Jay Hemphill DO [Med Staff - Active Staff] - Within 2 Weeks Kan Martin Chi, MD [Primary Care Provider] - Disposition Disposition (needs filled in before D/C Order can be placed): [facility]
--- NOTE | 2022-01-26 12:11 | PCM.PN.ORT ---
Subjective Subjective Patient seen and examined. Denies new complaints. Nausea improved. Complains of some mid back pain. Denies fevers, chills, nausea or vomiting, chest pain or shortness of breath. Objective Data Objective Data Vital Signs: Vital Signs Temp Pulse Resp BP Pulse Ox O2 Del Method O2 Flow Rate 98.6 F 71 16 116/61 91 Room Air 91 01/26/22 09:23 01/26/22 09:23 01/26/22 09:23 01/26/22 09:23 01/26/22 09:23 01/26/22 09:23 01/26/22 09:23 Oxygen Flow Rate (L/min) 91 Oxygen Delivery Method Room Air Weight: 168 lb 7.001 oz Body Mass Index (BMI) 29.8 Intake & Output: Intake and Output for Last 24 Hours 01/24/22 01/25/22 01/26/22 23:59 23:59 23:59 Intake Total 200 / 200 Output Total 700 / 700 400 / 400 Balance 200 / 200 -700 / -700 -400 / -400 Lab / Micro Data Result Diagrams: 01/25/22 06:43 01/25/22 06:43 Micro: Microbiology 01/25/22 10:06 Nasal Secretion SARS-CoV-2 Antigen (Rapid) - Final SARS-CoV-2 (COVID 19) Radiography Diagnostic Testing: Radiology Impression KUB X-Ray 01/25/22 09:33 IMPRESSION: Nonspecific bowel gas pattern. Electronically Signed: Russell Hewitt MD at 12:44 EDT , Physical Exam Narrative General - A&Ox3, NAD. VSS/AF Left lower extremity -incisional wound VAC clean dry and intact with good suction seal. No output noted in canister. SILT Sural, Saphenous, SPN, DPN, Tibial N. distributions. DP, PT 2+. BCR. DF, PF, EHL 5/5. No calf TTP. Assessment & Plan Assessment/Plan (1) History of hemiarthroplasty of left hip: (2) Closed left hip fracture: PLAN: POD#6 s/p conversion left hip screw fixation to cemented hip hemiarthroplasty - Pain control-patient appears comfortable - Medicine following for medical management -Encourage incentive spirometry for suspected atelectasis - PT/OT -posterior hip precautions left, weight-bear as tolerated left lower extremity - DVT PPX -Lovenox 40 mg subcutaneously daily, SCDs, TEDs - Case management - D/C planning. Patient stable for discharge pending pre-CERT to SNF. (3) COVID-19 virus infection: PLAN: Management per medicine. Patient appears asymptomatic today.
--- NOTE | 2022-01-26 14:34 | CASEMGMT ---
Discharge Glue Maker Marcy from [facility] reached out. Pre-cert has been obtained. ROMEO Mota notified. Kal ALFARO Database Analyst
--- NOTE | 2022-01-26 15:28 | CASEMGMT ---
Social Work? ROMEO notified pt and pt family of discharge to [facility] today. ROMEO completed 7000 convalescent form in [facility]. Set up cot transportation through [facility] for 4:30pm. ROMEO faxed all discharge orders to [place] via [facility] and notified facility of discharge time. ROMEO notified pt nurse of transport time. ROMEO made copies of discharge orders and placed on pt chart. Sent original orders in envelope with pt upon discharge. ? Disposition: [facility], skilled, convalescent, level of care? DANNY Galan?
--- NOTE | 2022-01-26 15:33 | NURSING ---
reviewed, agree with charting by keenan ruiz
--- NOTE | 2022-02-03 07:26 | PCM.DC.SUM ---
Providers Date of Admission: 01/20/22 Primary Care Physician: Dr. 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 Routine Comment: Reason for Consult:: Thoracic spine wound noted upon admission Diagnosis Discharge Diagnosis (1) History of hemiarthroplasty of left hip: Status: Acute Code(s): Z96.642 - Presence of left artificial hip joint (2) Closed left hip fracture: Status: Acute Code(s): S72.002A - Fracture of unspecified part of neck of left femur, initial encounter for closed fracture Plan: POD#6 s/p conversion left hip screw fixation to cemented hip hemiarthroplasty - Pain control-patient appears comfortable - Medicine following for medical management -Encourage incentive spirometry for suspected atelectasis - PT/OT -posterior hip precautions left, weight-bear as tolerated left lower extremity - DVT PPX -Lovenox 40 mg subcutaneously daily, SCDs, TEDs - Case management - D/C planning. Patient stable for discharge pending pre-CERT to SNF. (3) COVID-19 virus infection: Status: Acute Code(s): U07.1 - COVID-19 Plan: Management per medicine. Patient appears asymptomatic today. Medications at Discharge Home Medications buspirone 5 mg tablet 5 mg PO BID ANXIETY 12/25/20 escitalopram oxalate 20 mg tablet 20 mg PO DAILY DEPRESSION 12/25/20 esomeprazole magnesium 40 mg capsule,delayed release 40 mg PO DAILY GERD 12/25/20 enoxaparin 40 mg/0.4 mL subcutaneous syringe (Lovenox) 40 mg subcut DAILY DVT 01/18/22 guaifenesin 600 mg tablet, extended release 12 hr 600 mg PO Q12H COUGH 01/18/22 levothyroxine 150 mcg tablet 150 mcg PO DAILY THYROID 01/18/22 magnesium hydroxide 400 mg/5 mL oral suspension 30 ml PO DAILY PRN Constipation 01/18/22 melatonin 3 mg capsule 3 mg PO QHS PRN Insomnia 01/18/22 methadone 10 mg tablet 10 mg PO BID PAIN 01/18/22 metoprolol succinate 50 mg capsule sprinkle, ext. release 24 hr 50 mg PO DAILY HTN 01/18/22 multivitamin with minerals 1 cap PO DAILY SUPPLEMENT 01/18/22 ondansetron 8 mg disintegrating tablet 8 mg PO TID GERD 01/18/22 oxycodone 5 mg tablet 5 mg PO Q8H PRN Pain 01/18/22 prednisone 10 mg tablet 10 mg PO DAILY PAIN 01/18/22 quetiapine 50 mg tablet,extended release 24 hr (Seroquel XR) 50 mg PO QHS ANXIETY 01/18/22 sennosides 8.6 mg-docusate sodium 50 mg capsule 1 tab-cap PO BID CONSTIPATION 01/18/22 trazodone 50 mg tablet 50 mg PO QHS INSOMNIA 01/18/22 acetaminophen 500 mg tablet 1,000 mg PO Q8 14 days #84 tabs 01/22/22 doxycycline monohydrate 100 mg capsule 100 mg PO BID 7 days #14 caps 01/22/22 methadone 10 mg tablet 10 mg PO BID 3 days #6 tabs 01/26/22 oxycodone 5 mg tablet 5 mg PO Q6H PRN PRN Pain 1-10 3 days #12 tabs 01/26/22 Hospital Course Summary of Care Provided Minutes Spent on Discharge: 20 Hospital Course: Patient underwent uncomplicated left hip hemiarthroplasty conversion from failed percutaneous screw fixation on 01/20/2022. Her postoperative course was uneventful, but prolonged due to the precertification process for her return to detention facility. An internal medicine consult was placed for medical management. She tested positive for COVID-19 as part of the preadmission testing process for detention facility. She was asymptomatic. This prolonged the placement process as a different detention facility had to be chosen due to her COVID-19 status. She was able to be discharged to detention facility on postoperative day #6 after prior authorization was obtained. Physical Exam Narrative General - A&Ox3, NAD. VSS/AF Left lower extremity -incisional wound VAC clean dry and intact with good suction seal. No output noted in canister. SILT Sural, Saphenous, SPN, DPN, Tibial N. distributions. DP, PT 2+. BCR. DF, PF, EHL 5/5. No calf TTP. Weight / BMI Weight Weight: 168 lb 7.001 oz Body Mass Index (BMI) 29.8 ABG / Lab / Microbiology Data Result Diagrams: 01/25/22 06:43 01/25/22 06:43 Microbiology: Microbiology 01/25/22 10:06 Nasal Secretion SARS-CoV-2 Antigen (Rapid) - Final SARS-CoV-2 (COVID 19) Meaningful Use Info Meaningful Use Diagnoses (Choose all that apply): None applicable Discharge Plan Admission Admit Date/Time: 01/20/22 05:29 Primary Reason for Your Visit: Left hip surgery Attending Provider: Jay Hemphill Primary Care Provider: Kan Martin Chi Consulting Providers: Lo Penaloza Instructions Additional Instructions / Restrictions: Maintain Prevena wound VAC x10 days, then transition to dry sterile dressing changes for lateral left hip incision. Weightbearing as tolerated left lower extremity. Posterior hip precautions left with weightbearing as tolerated left lower extremity. Patient will need follow-up basic metabolic profile in 2 to 3 days after discharge from acute care facility Discharge Orders/Prescriptions Prescriptions: New acetaminophen 500 mg Tablet 1,000 mg PO Q8 14 Days Qty: 84 0RF doxycycline monohydrate 100 mg Capsule 100 mg PO BID 7 Days Qty: 14 0RF methadone 10 mg Tablet 10 mg PO BID 3 Days Qty: 6 0RF oxycodone 5 mg Tablet 5 mg PO Q6H PRN PRN (Reason: Pain 1-10) 3 Days Qty: 12 0RF Continued buspirone 5 mg tablet 5 mg PO BID escitalopram oxalate 20 mg tablet 20 mg PO DAILY esomeprazole magnesium 40 mg capsule,delayed release(DR/EC) 40 mg PO DAILY prednisone 10 mg Tablet 10 mg PO DAILY trazodone 50 mg Tablet 50 mg PO QHS methadone 10 mg Tablet 10 mg PO BID ondansetron 8 mg Tablet,Disintegrating 8 mg PO TID magnesium hydroxide 400 mg/5 mL Suspension 30 ml PO DAILY PRN (Reason: Constipation) levothyroxine 150 mcg Tablet 150 mcg PO DAILY oxycodone 5 mg Tablet 5 mg PO Q8H PRN (Reason: Pain) enoxaparin [Lovenox] 40 mg/0.4 mL Syringe 40 mg SUBCUT DAILY multivitamin with minerals Capsule 1 cap PO DAILY quetiapine [Seroquel XR] 50 mg Tablet Extended Release 24 Hr 50 mg PO QHS guaifenesin 600 mg Tablet Extended Release 12hr 600 mg PO Q12H metoprolol succinate 50 mg Capsule,Sprinkle,Er 24hr 50 mg PO DAILY melatonin 3 mg Capsule 3 mg PO QHS PRN (Reason: Insomnia) sennosides-docusate sodium 8.6-50 mg Capsule 1 tab-cap PO BID Referrals / Follow Up: Jay Hemphill DO [Med Staff - Active Staff] - Within 2 Weeks Kan Martin Chi, MD [Primary Care Provider] - Disposition Disposition (needs filled in before D/C Order can be placed): [facility]
== END 2022-01-26 16:57 | disposition skilled nursing facility (03) | DRG 469 ==
LOC: ACINP 05:41 → MS3 14:15
PROVIDERS: Internal Medicine; Admitting Provider Student in an Organized Health Care Education/Training Program; PCP Family Medicine Geriatric Medicine; Referring Provider Student in an Organized Health Care Education/Training Program; Visit Provider Student in an Organized Health Care Education/Training Program
PROC: 0SRB0JZ Replacement of Left Hip Joint with Synthetic Substitute, Open Approach (ICD-10-PCS; CPT 27130; principal; 2022-01-20 07:05)
DX: T84.125A Displacement of internal fixation device of left femur, initial encounter (principal); U07.1 COVID-19; S72.002A Fracture of unspecified part of neck of left femur, initial encounter for closed fracture; E87.1 Hypo-osmolality and hyponatremia; J98.11 Atelectasis; I11.0 Hypertensive heart disease with heart failure; I50.9 Heart failure, unspecified; J44.9 Chronic obstructive pulmonary disease, unspecified; K21.9 Gastro-esophageal reflux disease without esophagitis; E87.6 Hypokalemia; E78.00 Pure hypercholesterolemia, unspecified; E03.9 Hypothyroidism, unspecified; F17.210 Nicotine dependence, cigarettes, uncomplicated; F41.9 Anxiety disorder, unspecified; K59.03 Drug induced constipation; T40.605A Adverse effect of unspecified narcotics, initial encounter; Z66 Do not resuscitate; R09.02 Hypoxemia; Y83.8 Other surgical procedures as the cause of abnormal reaction of the patient, or of later complication, without mention of misadventure at the time of the procedure; Y92.239 Unspecified place in hospital as the place of occurrence of the external cause; G89.29 Other chronic pain; Z79.52 Long term (current) use of systemic steroids; F32.A Depression, unspecified; G47.00 Insomnia, unspecified
CPT/HCPCS: 36415; 71045; 73502; 74018; 80048; 84443; 85018; 85025; 85027; 86850; 86900; 86901; 87426; 88307; 88311; 93005; 97110; 97116; 97162; 97166; 97530; 97535; 97802; C1776; J7120; A4216; J1940; J2405